=== PATIENT | male | born 1990 | race Caucasian/White ===

== ENCOUNTER 2023-08-27 11:20 | Emergency (ER) | payer OTHER, SELFPAY ==
[2023-08-27 11:24] VITALS: BP 132/100; PULSE 71; RESP 18; TEMP 36.5; O2SAT 100; BMI 25.8
--- NOTE | 2023-08-27 11:38 | ECG_ITS ---
[facility] Test Date: 2023-08-27 Pat Name: ANTIONETTE UMANA Department: Room: - Gender: Male Director Operating Room: : 1990 Requested By: [id number] Order Number: [id number] Reading MD: LAURA GARCIA Measurements Intervals [place] Rate: 64 P: 49 PA: 112 QRS: 47 QRSD: 90 T: 1 QT: 388 QTc: 398 Interpretive Statements 1100 Sinus rhythm 2210 Short PA interval 4068 Nonspecific Twave abnormality 9150 abnormal ECG No previous ECG available for comparison Electronically Signed On 08-27-2023 18:21:45 EDT by LAURA GARCIA
--- NOTE | 2023-08-27 11:39 | ED.GENADUL1 ---
HPI - General Adult General Chief complaint: Chest Pain Stated complaint: HIVES/CHEST PAIN Time Seen by Provider: 08/27/23 11:29 Source: patient Mode of arrival: walk-in Limitations: no limitations History of Present Illness HPI narrative: 32-year-old male presents for an ALLERGIC reaction. Three days ago he was put on Augmentin and two days ago he developed a rash. It's on the palms of his hands and the soles of his feet but also on his arms. The most significant area is at his right ear and just behind it. I had some tightness in his chest. No fever or vomiting or shortness of breath complaints. Related Data Previous Rx's Medication Instructions Recorded prednisone 10 mg tablet See Rx Instructions .Route 08/27/23 .COMPLEX #30 tabs Allergies Allergy/AdvReac Type Severity Reaction Status Date / Time cephalexin [From Keflex] Allergy Intermediate Verified 08/27/23 11:28 Review of Systems ROS Narrative A ten point review of systems is negative except as noted above. PFSH PFSH Social History Smoking status: Former smoker Exam Narrative Exam Narrative: Nurses note and vital signs reviewed and patient is not hypoxic. General: The patient appears well and in no apparent distress. Patient is resting comfortably on cart. Skin: Warm, dry, no pallor noted. There is erythematous raised rash present on his right ear and behhind it and to a lesser degree on his forearms and the palms of his hands and the soles of his feet. No rash inside of his mouth. Head: Normocephalic, atraumatic Eye: Normal conjunctiva, no drainage Ears, Nose, Mouth, and Throat: oral mucosa is moist. Nares patent. Cardiovascular: Regular Rate and Rhythm Respiratory: Patient is in no distress, no accessory muscle use, lungs are clear to auscultation, no wheezing, rales or rhonchi Back: non-tender GI: nontender Musculoskeletal: The patient has no evidence of calf tenderness, no pitting edema, symmetrical pulses noted bilaterally Neurological: A&O, normal speech Psychiatric: Cooperative Constitutional Vital Signs, click to edit/add: Last Vital Signs Temp 97.7 F 08/27/23 11:24 Pulse 71 08/27/23 11:24 Resp 18 08/27/23 11:24 BP 132/100 H 08/27/23 11:24 Pulse Ox 100 08/27/23 11:24 O2 Del Method Room Air 08/27/23 11:24 Course Vital Signs Vital signs: Vital Signs Temperature 97.7 F 08/27/23 11:24 Pulse Rate 71 08/27/23 11:24 Respiratory Rate 18 08/27/23 11:24 Blood Pressure 132/100 H 08/27/23 11:24 Pulse Oximetry 100 08/27/23 11:24 Oxygen Delivery Method Room Air 08/27/23 11:24 Temperature 97.7 F 08/27/23 11:24 Pulse Rate 71 08/27/23 11:24 Respiratory Rate 18 08/27/23 11:24 Blood Pressure 132/100 H 08/27/23 11:24 Pulse Oximetry 100 08/27/23 11:24 Oxygen Delivery Method Room Air 08/27/23 11:24 Medical Decision Making MDM Narrative Medical decision making narrative: my clinical impressions that he's had an ALLERGIC reaction.. The Augmentin and was given IM Solu- Medrol here and was prescribed prednisone. He is driving home. He'll take Benadryl for itching. Treatment diagnosis and follow-up were discussed with the patient. Differential Diagnosis Differential Diagnosis: ALLERGIC reaction, adverse reaction ECG Data Attestation: I personally reviewed and interpreted this ECG as follows: (EKG on my interpretation shows normal sinus rhythm with a rate of sixty-four and no acute changes.) Discharge Plan Discharge Chief Complaint: Chest Pain Clinical Impression: Allergic reaction due to antibacterial drug Patient Disposition: Home, Self-Care Time of Disposition Decision: 11:47 Condition: Good Mode of Transportation: Private Vehicle Prescriptions / Home Meds: New prednisone 10 mg tablet See Rx Instructions .ROUTE .COMPLEX Qty: 30 0RF Rx Instructions: 4 by mouth daily for three days then 3 by mouth daily for three days then 2 by mouth daily for three days then 1 by mouth daily for three days Instructions: Antibiotic Medication Allergy (ED) Additional Instructions: discontinue the Augmentin Stand Alone Forms: Portal Instructions Referrals: JAYY YOO [Primary Care Provider] - 1 week
[2023-08-27] MEDS: METHYLPREDNISOLONE SOD SUCC PF 125 MG/2 ML VIAL IM (11:57)
== END 2023-08-27 12:01 | disposition home or self-care (01) ==
LOC: ER 11:53
PROVIDERS: Emergency Provider Emergency Medicine; PCP Nurse Practitioner Family
DX: L27.0 Generalized skin eruption due to drugs and medicaments taken internally (principal); T36.0X5A Adverse effect of penicillins, initial encounter; T36.1X5A Adverse effect of cephalosporins and other beta-lactam antibiotics, initial encounter; Z87.891 Personal history of nicotine dependence
CPT/HCPCS: 93005; 96372; 99285; J2930

== ENCOUNTER 2024-01-15 04:05 | Emergency (ER) | payer OTHER, SELFPAY ==
[2024-01-15 04:11] VITALS: BP 114/90; PULSE 114; RESP 20; TEMP 37.8; O2SAT 96; BMI 25.8
--- OUTSIDE RECORDS SUMMARY | 2024-01-15 04:11 | XMS_ITS | CCD ---
Author Name Unknown Address [address] [place] [id number] Organization [facility] Care Team Providers Care Land Le[employer] Information Clerk Name Role Phone DARCY YOO Admitting Unavailable DARCY YOO Attending Unavailable FREDO, DARCY Primary Care Unavailable FREDO DARCY Consulting Unavailable FREDO, DARCY Admitting Unavailable FREDO, DARCY Attending Unavailable FREDO, DARCY Primary Care Unavailable FREDO, DARCY Consulting Unavailable Leland Erazo Unavailable JOSHUA Yoo Primary Care Provider MD Leland Erazo Attending Provider [phone] Leland Erazo Attending Unavailable Darcy Yoo Primary Care Unavailable Leland Erazo Admitting Unavailable Leland Erazo Attending Unavailable Darcy Yoo Primary Care Unavailable Leland Erazo Admitting Unavailable Husam Barba Unavailable Allergies Allergy Classification Reported Allergen(s) Allergy Type Date of Onset Reaction(s) Facility (2 sources) Cephalexin Drug Allergy Unknown [employer] Other (2 sources) Cephalexin; Translations: [cephalexin] Drug Allergy 05-18-2023 [facility] Medications Current Medications Medication Drug Class(es) Dates Sig (Normalized) Sig (Original) 24 hr buPROPion hydrochloride 150 mg extended release oral tablet (3 sources) Aminoketone Start: 05-18-2023 take 150 mg by mouth once daily Bupropion Hcl Active 150 MG PO Daily May 18, 2023 12:00am omeprazole 40 mg delayed release oral capsule (3 sources) Proton Pump Inhibitor Start: 01-28-2021 take 40 mg by mouth twice daily Omeprazole Active 40 MG PO Twice daily May 18, 2023 12:00am ondansetron 4 mg oral tablet (2 sources) Serotonin-3 Receptor Antagonist Zofran 4 MG 1 tablet Orally PRN Active polyethylene glycol 3350 [id number] mg / potassium chloride 2970 mg / sodium bicarbonate 6740 mg / sodium chloride 5860 mg / sodium sulfate 95768 mg powder for oral solution (1 source) Osmotic Laxative Start: 04-04-2023 Golytely 236 GM At 4:00 pm the day prior to colonoscopy Orally 8 ounces every 15 minutes for 1 days PLEASE CHECK ALLERGIES Mar, Active Problems Active Problems Problem Classification Problem Date Documented Da te Episodic/Chronic Abdominal hernia (2 sources) Hiatal hernia; Translations: [Diaphragmatic hernia without obstruction or gangrene] Episodic Esophageal disorders (3 sources) Gastroesophageal reflux disease; Translations: [Gastro-esophageal reflux disease without esophagitis] Chronic Gastrointestinal hemorrhage (1 source) Hemorrhage of anus and rectum Episodic Hemorrhoids (1 source) Unspecified hemorrhoids Episodic Nausea and vomiting (2 sources) Nausea and vomiting; Translations: [Nausea with vomiting, unspecified] Episodic Other disorders of stomach and duodenum (2 sources) Indigestion; Translations: [Functional dyspepsia] Episodic Other disorders of stomach and duodenum (2 sources) Functional dyspepsia; Translations: [Functional dyspepsia] Onset: 3 Episodic Other gastrointestinal disorders (2 sources) Constipation; Translations: [Constipation, unspecified] Episodic Other gastrointestinal disorders (2 sources) Heartburn; Translations: [Heartburn] Episodic Other gastrointestinal disorders (1 source) Heartburn Episodic Other gastrointestinal disorders (1 source) Abdominal distension (gaseous) Episodic Other gastrointestinal disorders (1 source) Constipation, unspecified Episodic Other non-traumatic joint disorders (1 source) Pain in right knee; Translations: [PAIN IN RIGHT KNEE] Onset: 3 Episodic Other non-traumatic joint disorders (1 source) Pain in left knee; Translations: [PAIN IN LEFT KNEE] Onset: 3 Episodic Unclassified (1 source) Hemorrhage of anus and rectum; Translations: [Hemorrhage of anus and rectum] Onset: 3 Past or Other Problems Problem Classification Problem Date Documented Da te Episodic/Chronic Other screening for suspected conditions (not mental disorders or infectious disease) (1 source) Encounter for screening for malignant neoplasm of prostate; Translations: [ENC SCREEN MALIG NEOPLASM PROSTATE] Onset: 05-11-2022 Episodic Results Test Name Value Interpretation Reference Range Facility [facility] 04-04-2023 Deamidated Gliadin Abs, IgA 12 Normal 0-19 [facility] Comment on above: Result Comment: Nega tive 0 - 19 Weak Positive 20 - 30 Moderate to Strong Positive >30 Performed By: #### C ELIAC #### [facility] , Deamidated Gliadin Abs, IgG 3 Normal 0-19 [facility] Comment on above: Result Comment: Nega tive 0 - 19 Weak Positive 20 - 30 Moderate to Strong Positive >30 Performed By: #### C ELIAC #### [facility] , Endomysial Antibody IgA Negative Normal Negative [facility] Comment on above: Performed By: #### C ELIAC #### [facility] , Immunoglobulin A, Qn, Serum 149 mg/dL Normal 90-386 [facility] Comment on above: Result Comment: Perf ormed at: - [facility] [address] [id number] Senior Advisor: Stephon Ramachandran PhD, Phone: [phone] PERFORMED BY: [place] [id number] PATHOLOGIST [employer] ANDREW PEREZ M.D. Performed By: #### C ELIAC #### [facility] , T-Transglutaminase (tTG) IgA <2 Normal 0-3 [facility] Comment on above: Result Comment: Nega tive 0 - 3 Weak Positive 4 - 10 Positive >10 Tissue Transglutaminase (tTG) has been identified as the endomysial antigen. Studies have demonstr- ated that endomysial IgA antibodies have over 99% specificity for gluten sensitive enteropathy. Performed By: #### C ELIAC #### [facility] , T-Transglutaminase (tTG) IgG <2 Normal 0-5 [facility] Comment on above: Result Comment: Nega tive 0 - 5 Weak Positive 6 - 9 Positive >9 Performed By: #### C ELIAC #### [facility] , IgA [Mass/volume] in Serum o r PlasmaOrdered By: Leland Erazo on 04-04-2023 IgA [Mass/Vol] 149 mg/dL 90-386 [facility] Comment on above: Performed at: [address] [id number] Director: Stephon Ramachandran PhD, Phone: [phone] No Panel InformationOrdered By: Leland Erazo on 04-04-2023 Endomysial IgA Antibody Negative Negative [facility] Serum gliadin peptide IgA an tibody assay (units/volume)Ordered By: Leland Erazo on 04-04-2023 Gliadin peptide IgA Qn (S) 12 units 0-19 [facility] Comment on above: Negative 0 - 19 Weak Positive 20 - 30 Moderate to Strong Positive >30 Serum gliadin peptide IgG an tibody assay (units/volume)Ordered By: Leland Erazo on 04-04-2023 Gliadin peptide IgG Qn (S) 3 units 0-19 [facility] Comment on above: Negative 0 - 19 Weak Positive 20 - 30 Moderate to Strong Positive >30 Serum tissue transglutaminas e (tTG) IgA antibody assay (units/volume)Ordered By: Leland Erazo on 04-04-2023 tTG IgA Qn (S) <2 U/mL 0-3 [facility] Comment on above: Negative 0 - 3 Weak Positive 4 - 10 Positive >10 Tissue Transglutaminase (tTG) has been identified as the endomysial antigen. Studies have demonstr- ated that endomysial IgA antibodies have over 99% specificity for gluten sensitive enteropathy. Serum tissue transglutaminas e (tTG) IgG antibody assay (units/volume)Ordered By: Leland Erazo on 04-04-2023 tTG IgG Qn (S) <2 U/mL 0-5 [facility] Comment on above: Negative 0 - 5 Weak Positive 6 - 9 Positive >9 ERNESTINA by IFAon 03-12-2023 Antinuclear Antibodies, IFA Negative Normal [facility] Comment on above: Result Comment: Nega tive <1:80 Borderline 1:80 Positive >1:80 ICAP nomenclature: AC-0 For more information about Hep-2 cell patterns use ANApatterns.org, the official website for the International Consensus on Antinuclear Antibody (ERNESTINA) Patterns (ICAP). Performed By: #### U IVANNA, CRP, LIPID, T7, CMP, TSH #### [facility] [address] [place] [address] Dr. Morris Corley ANTISTREPTOLYSIN O AB (ASO)o n 03-10-2023 Antistreptolysin O Ab 255.8 IU/mL Critically high 0.0-200.0 [facility] Comment on above: Performed By: #### A SOAB #### [facility] [address] [place] [address] Dr. Morris Corley INSULINon 03-10-2023 Insulin 12.0 uIU/mL Normal 2.6-24.9 [facility] Comment on above: Performed By: #### U IVANNA, CRP, LIPID, T7, CMP, TSH #### [facility] [address] [place] [address] Dr. Morris Corley OCC BLD IMMUNO SCREENon 02-27 OCCULT BLOOD Negative Normal NEGATIVE [facility] Comment on above: Performed By: #### U IVANNA, CRP, LIPID, T7, CMP, TSH #### [facility] [address] [place] [address] Dr. Morris Corley RHEUMATOID FACTORon 03-10-20 RA Latex Turbid. <10.0 Normal <14.0 [facility] Comment on above: Performed By: #### U IVANNA, CRP, LIPID, T7, CMP, TSH #### [facility] [address] [place] [address] Dr. Morris Corley CBC AUTO DIFFon 03-09-2023 BASO # 0.1 103/ul Normal 0.0-0.1 [facility] Comment on above: Performed By: #### C BC #### [facility] [address] [place] [address] Dr. Morris Corley Basophils/100 WBC (Bld) 0.9 % Normal 0.2-2.0 [facility] Comment on above: Performed By: #### C BC #### [facility] [address] [place] [address] Dr. Morris Corley EO # 0.2 103/ul Normal 0.0-0.7 [facility] Comment on above: Performed By: #### C BC #### [facility] [address] [place] [address] Dr. Morris Corley Eosinophils/100 WBC (Bld) 3.3 % Normal 0.9-7.0 [facility] Comment on above: Performed By: #### C BC #### [facility] [address] [place] [address] Dr. Morris Corley Erythrocyte distribution width (RBC) [Ratio] 12.2 % Normal 11.0-15.0 [facility] Comment on above: Performed By: #### C BC #### [facility] [address] [place] [address] Dr. Morris Corley Hematocrit (Bld) [Volume fraction] 45.1 % Normal 42.0-54.0 [facility] Comment on above: Performed By: #### C BC #### [facility] [address] [place] [address] Dr. Morris Corley Hemoglobin (Bld) [Mass/Vol] 15.5 g/dL Normal 14.0-18.0 [facility] Comment on above: Performed By: #### C BC #### [facility] [address] [place] [address] Dr. Morris Corley IG # 0.01 10e3/ul Normal 0.00-0.03 [facility] Comment on above: Performed By: #### C BC #### [facility] [address] [place] [address] Dr. Morris Corley IG % 0.1 % Normal 0.0-0.5 [facility] Comment on above: Performed By: #### C BC #### [facility] [address] [place] [address] Dr. Morris Corley LYMPH # 1.7 103/ul Normal 1.2-3.8 [facility] Comment on above: Performed By: #### C BC #### [facility] [address] [place] [address] Dr. Morris Corley Lymphocytes/100 WBC (Bld) 24.7 % Normal 20.5-60.0 [facility] Comment on above: Performed By: #### C BC #### [facility] [address] [place] [address] Dr. Morris Corley MANUAL DIFF REQ NO Normal [facility] Comment on above: Performed By: #### C BC #### [facility] [address] [place] [address] Dr. Morris Corley MCH (RBC) [Entitic mass] 30.4 pg Normal 25.9-34.0 [facility] Comment on above: Performed By: #### C BC #### [facility] [address] [place] [address] Dr. Morris Corley MCHC (RBC) [Mass/Vol] 34.4 g/dL Normal 29.9-35.2 [facility] Comment on above: Performed By: #### C BC #### [facility] [address] [place] [address] Dr. Morris Corley MCV (RBC) [Entitic vol] 88.4 fL Normal 80.0-94.0 [facility] Comment on above: Performed By: #### C BC #### [facility] [address] [place] [address] Dr. Morris Corley MONO # 0.5 103/ul Normal 0.3-0.8 [facility] Comment on above: Performed By: #### C BC #### [facility] [address] [place] [address] Dr. Morris Corley Monocytes/100 WBC (Bld) 7.5 % Normal 1.7-12.0 [facility] Comment on above: Performed By: #### C BC #### [facility] [address] [place] [address] Dr. Morris Corley NEUT # 4.4 103/ul Normal 1.4-6.5 [facility] Comment on above: Performed By: #### C BC #### [facility] [address] [place] [address] Dr. Morris Corley Neutrophils/100 WBC (Bld) 63.5 % Normal 43.0-75.0 [facility] Comment on above: Performed By: #### C BC #### [facility] [address] [place] [address] Dr. Morris Corley Platelet mean volume (Bld) [Entitic vol] 9.7 fL Normal 9.5-13.5 [facility] Comment on above: Performed By: #### C BC #### [facility] [address] [place] [address] Dr. Morris Corley PLT 309 103/ul Normal 150-450 [facility] Comment on above: Performed By: #### C BC #### [facility] [address] [place] [address] Dr. Morris Corley RBC 5.10 106/ul Normal 4.70-6.10 [facility] Comment on above: Performed By: #### C BC #### [facility] [address] [place] [address] Dr. Morris Corley WBC 7.0 103/ul Normal 4.0-11.0 [facility] Comment on above: Performed By: #### C BC #### [facility] [address] [place] [address] Dr. Morris Corley CRPon 03-09-2023 CRP [Mass/Vol] mg/L Normal <=1.0 [facility] Comment on above: Performed By: #### U IVANNA, CRP, LIPID, T7, CMP, TSH #### [facility] [address] [place] [address] Dr. Morris Corley FREE THYROXINE INDEX T7on FTI 3.03 Normal 1.30-4.50 [facility] Comment on above: Performed By: #### U IVANNA, CRP, LIPID, T7, CMP, TSH #### [facility] [address] [place] [address] Dr. Morris Corley T3U 34.0 % Normal 33.0-40.0 [facility] Comment on above: Performed By: #### U IVANNA, CRP, LIPID, T7, CMP, TSH #### [facility] [address] [place] [address] [address] Morris Corley T4 [Mass/Vol] 8.90 ug/dL Normal 4.50-12.10 [facility] Comment on above: Performed By: #### U IVANNA, CRP, LIPID, T7, CMP, TSH #### [facility] [address] [address] [address] Morris Corley GLYCOHEMOGLOBIN A1Con 2022 ADA RECOMMENDATION SEE BELOW Normal [facility] Comment on above: Result Comment: ADA RECOMMENDED LIMIT 4.0 - 6.0 ADA THERAPEUTIC TARGET < 7.0 ACTION SUGGESTED > 7.0 Performed By: #### U IVANNA, CRP, LIPID, T7, CMP, TSH #### [facility] [address] [address] [address] Morris Corley Glucose [Mass/Vol] 105 mg/dL Normal [facility] Comment on above: Performed By: #### U IVANNA, CRP, LIPID, T7, CMP, TSH #### [facility] [address] [place] [address] Dr. Morris Corley HbA1c (Bld) [Mass fraction] 5.3 % Normal 4.5-6.2 [facility] Comment on above: Performed By: #### U IVANNA, CRP, LIPID, T7, CMP, TSH #### [facility] [address] [place] [address] Dr. Morris Corley LIPID PROFILEon 03-09-2023 CHOL-HDL RATIO NORM SEE BELOW Normal [facility] Comment on above: Result Comment: 3.3 - 4.4 LOW RISK 4.4 - 7.1 AVERAGE RISK 7.1 - 11.0 MODERATE RISK >11.0 HIGH RISK Performed By: #### U IVANNA, CRP, LIPID, T7, CMP, TSH #### [facility] [address] [address] [address] Morris Corley Cholesterol [Mass/Vol] 192 mg/dL Normal <=200 [facility] Comment on above: Performed By: #### U IVANNA, CRP, LIPID, T7, CMP, TSH #### [facility] [address] [place] [address] Dr. Morris Corley Cholesterol in HDL [Mass/Vol] 42 mg/dL Normal 40-60 [facility] Comment on above: Performed By: #### U IVANNA, CRP, LIPID, T7, CMP, TSH #### [facility] [address] [address] [address] Morris Corley Cholesterol in LDL [Mass/Vol] 122.2 mg/dL Normal [facility] Comment on above: Performed By: #### U IVANNA, CRP, LIPID, T7, CMP, TSH #### [facility] [address] [address] [address] Morris Corley Cholesterol.total/Ch olesterol in HDL [Mass ratio] 4.6 {ratio} Normal [facility] Comment on above: Performed By: #### U IVANNA, CRP, LIPID, T7, CMP, TSH #### [facility] [address] [address] [address] Morris Corley HDL NORMAL > or = 60 mg/dl - LO W CARDIOVASCULAR RISK <40 mg/dl - HIGH CARDIOVASCULAR RISK Normal [facility] Comment on above: Performed By: #### U IVANNA, CRP, LIPID, T7, CMP, TSH #### [facility] [address] [address] [address] Morris Corley LDL CALC NORMAL SEE BELOW Normal [facility] Comment on above: Result Comment: <100 mg/dl OPTIMAL 100 - 129 mg/dl NEAR OR ABOVE OPTIMAL 130 - 159 mg/dl BORDERLINE HIGH 160 - 189 mg/dl HIGH >190 mg/dl VERY HIGH Performed By: #### U IVANNA, CRP, LIPID, T7, CMP, TSH #### [facility] [address] [address] [address] Morris Corley Triglyceride [Mass/Vol] 139 mg/dL Normal <=150 [facility] Comment on above: Performed By: #### U IVANNA, CRP, LIPID, T7, CMP, TSH #### [facility] [address] [address] [address] Morris Corley VLDL CALC 27.8 mg/dL Normal [facility] Comment on above: Performed By: #### U IVANNA, CRP, LIPID, T7, CMP, TSH #### [facility] [address] [place] [address] Dr. Morris Corley PROF 14(COMP METB)on 023 Albumin [Mass/Vol] 4.0 g/dL Normal 3.4-5.0 [facility] Comment on above: Performed By: #### U IVANNA, CRP, LIPID, T7, CMP, TSH #### [facility] [address] [place] [address] Dr. Morris Corley Albumin/Globulin [Mass ratio] 1.0 {ratio} Normal [facility] Comment on above: Performed By: #### U IVANNA, CRP, LIPID, T7, CMP, TSH #### [facility] [address] [place] [address] Dr. Morris Corley ALP [Catalytic activity/Vol] 106 U/L Normal 46-116 [facility] Comment on above: Performed By: #### U IVANNA, CRP, LIPID, T7, CMP, TSH #### [facility] [address] [place] [address] Dr. Morris Corley ALT [Catalytic activity/Vol] 20 U/L Normal 16-63 [facility] Comment on above: Performed By: #### U IVANNA, CRP, LIPID, T7, CMP, TSH #### [facility] [address] [place] [address] Dr. Morris Corley Anion gap [Moles/Vol] 10.0 mmol/L Normal [facility] Comment on above: Performed By: #### U IVANNA, CRP, LIPID, T7, CMP, TSH #### [facility] [address] [place] [address] Dr. Morris Corley AST [Catalytic activity/Vol] 17 U/L Normal 15-37 [facility] Comment on above: Performed By: #### U IVANNA, CRP, LIPID, T7, CMP, TSH #### [facility] [address] [place] [address] Dr. Morris Corley Bilirubin [Mass/Vol] 0.4 mg/dL Normal 0.2-1.0 [facility] Comment on above: Performed By: #### U IVANNA, CRP, LIPID, T7, CMP, TSH #### [facility] [address] [address] [address] Morris Corley Calcium [Mass/Vol] 9.2 mg/dL Normal 8.5-10.1 [facility] Comment on above: Performed By: #### U IVANNA, CRP, LIPID, T7, CMP, TSH #### [facility] [address] [address] [address] Morris Corley Chloride [Moles/Vol] 104 mmol/L Normal 98-107 [facility] Comment on above: Performed By: #### U IVANNA, CRP, LIPID, T7, CMP, TSH #### [facility] [address] [address] [address] Morris Corley CO2 [Moles/Vol] 33.7 mmol/L Critically high 21.0-32.0 [facility] Comment on above: Performed By: #### U IVANNA, CRP, LIPID, T7, CMP, TSH #### [facility] [address] [place] [address] Dr. Morris Corley Creatinine [Mass/Vol] 0.99 mg/dL Normal 0.70-1.30 [facility] Comment on above: Performed By: #### U IVANNA, CRP, LIPID, T7, CMP, TSH #### [facility] [address] [place] [address] Dr. Morris Corley EGFR-AF EAST TIMORESE >60 Normal >=60 [facility] Comment on above: Performed By: #### U IVANNA, CRP, LIPID, T7, CMP, TSH #### [facility] [address] [place] [address] Dr. Morris Corley EGFR-NON AF EAST [place]ORESE >60 Normal >=60 [facility] Comment on above: Performed By: #### U IVANNA, CRP, LIPID, T7, CMP, TSH #### [facility] [address] [place] [address] Dr. Morris Corley Globulin (S) [Mass/Vol] 4.0 g/dL Normal [facility] Comment on above: Performed By: #### U IVANNA, CRP, LIPID, T7, CMP, TSH #### [facility] [address] [place] [address] Dr. Morris Corley Glucose [Mass/Vol] 95 mg/dL Normal 74-106 [facility] Comment on above: Performed By: #### U IVANNA, CRP, LIPID, T7, CMP, TSH #### [facility] [address] [place] [address] Dr. Morris Corley Potassium [Moles/Vol] 3.7 mmol/L Normal 3.5-5.1 [facility] Comment on above: Performed By: #### U IVANNA, CRP, LIPID, T7, CMP, TSH #### [facility] [address] [place] [address] Dr. Morris Corley Protein [Mass/Vol] 8.0 g/dL Normal 6.4-8.2 [facility] Comment on above: Performed By: #### U IVANNA, CRP, LIPID, T7, CMP, TSH #### [facility] [address] [place] [address] Dr. Morris Corley Sodium [Moles/Vol] 144 mmol/L Normal 136-145 [facility] Comment on above: Performed By: #### U IVANNA, CRP, LIPID, T7, CMP, TSH #### [facility] [address] [place] [address] Dr. Morris Corley Urea nitrogen [Mass/Vol] 10.0 mg/dL Normal 7.0-18.0 [facility] Comment on above: Performed By: #### U IVANNA, CRP, LIPID, T7, CMP, TSH #### [facility] [address] [place] [address] Dr. Morris Corley Urea nitrogen/Creatinine [Mass ratio] 10.1 mg/mg Normal [facility] Comment on above: Performed By: #### U IVANNA, CRP, LIPID, T7, CMP, TSH #### [facility] [address] [place] [address] Dr. Morris Corley TSHon 03-09-2023 TSH 1.439 uIU/mL Normal 0.358-3.740 [facility] Comment on above: Performed By: #### U IVANNA, CRP, LIPID, T7, CMP, TSH #### [facility] [address] [place] [address] Dr. Morris Corley URIC ACID SERUMon 03-09-2023 Urate [Mass/Vol] 4.8 mg/dL Normal 3.5-7.2 [facility] Comment on above: Performed By: #### U IVANNA, CRP, LIPID, T7, CMP, TSH #### [facility] [address] [place] [address] Dr. Morris Corley INSULINon 05-10-2022 Insulin 16.4 uIU/mL Normal 2.6-24.9 [facility] Comment on above: Performed By: #### U IVANNA, CRP, LIPID, T7, CMP, TSH #### [facility] [address] [place] [address] Dr. Morris Corley CBC AUTO DIFFon 05-09-2022 BASO # 0.1 103/ul Normal 0.0-0.1 [facility] Comment on above: Performed By: #### U IVANNA, CRP, LIPID, T7, CMP, TSH #### [facility] [address] [place] [address] Dr. Morris Corley Basophils/100 WBC (Bld) 0.8 % Normal 0.2-2.0 [facility] Comment on above: Performed By: #### U IVANNA, CRP, LIPID, T7, CMP, TSH #### [facility] [address] [place] [address] Dr. Morris Corley EO # 0.2 103/ul Normal 0.0-0.7 [facility] Comment on above: Performed By: #### U IVANNA, CRP, LIPID, T7, CMP, TSH #### [facility] [address] [place] [address] Dr. Morris Corley Eosinophils/100 WBC (Bld) 2.9 % Normal 0.9-7.0 [facility] Comment on above: Performed By: #### U IVANNA, CRP, LIPID, T7, CMP, TSH #### [facility] [address] [place] [address] Dr. Morris Corley Erythrocyte distribution width (RBC) [Ratio] 12.3 % Normal 11.0-15.0 [facility] Comment on above: Performed By: #### U IVANNA, CRP, LIPID, T7, CMP, TSH #### [facility] [address] [place] [address] Dr. Morris Corley Hematocrit (Bld) [Volume fraction] 42.9 % Normal 42.0-54.0 [facility] Comment on above: Performed By: #### U IVANNA, CRP, LIPID, T7, CMP, TSH #### [facility] [address] [place] [address] Dr. Morris Corley Hemoglobin (Bld) [Mass/Vol] 15.0 g/dL Normal 14.0-18.0 [facility] Comment on above: Performed By: #### U IVANNA, CRP, LIPID, T7, CMP, TSH #### [facility] [address] [place] [address] Dr. Morris Corley IG # 0.02 10e3/ul Normal 0.00-0.03 [facility] Comment on above: Performed By: #### U IVANNA, CRP, LIPID, T7, CMP, TSH #### [facility] [address] [place] [address] Dr. Morris Corley IG % 0.3 % Normal 0.0-0.5 [facility] Comment on above: Performed By: #### U IVANNA, CRP, LIPID, T7, CMP, TSH #### [facility] [address] [place] [address] Dr. Morris Corley LYMPH # 1.6 103/ul Normal 1.2-3.8 [facility] Comment on above: Performed By: #### U IVANNA, CRP, LIPID, T7, CMP, TSH #### [facility] [address] [place] [address] Dr. Morris Corley Lymphocytes/100 WBC (Bld) 22.5 % Normal 20.5-60.0 [facility] Comment on above: Performed By: #### U IVANNA, CRP, LIPID, T7, CMP, TSH #### [facility] [address] [place] [address] Dr. Morris Corley MANUAL DIFF REQ NO Normal [facility] Comment on above: Performed By: #### U IVANNA, CRP, LIPID, T7, CMP, TSH #### [facility] [address] [place] [address] Dr. Morris Corley MCH (RBC) [Entitic mass] 30.6 pg Normal 25.9-34.0 [facility] Comment on above: Performed By: #### U IVANNA, CRP, LIPID, T7, CMP, TSH #### [facility] [address] [place] [address] Dr. Morris Corley MCHC (RBC) [Mass/Vol] 35.0 g/dL Normal 29.9-35.2 [facility] Comment on above: Performed By: #### U IVANNA, CRP, LIPID, T7, CMP, TSH #### [facility] [address] [place] [address] Dr. Morris Corley MCV (RBC) [Entitic vol] 87.6 fL Normal 80.0-94.0 [facility] Comment on above: Performed By: #### U IVANNA, CRP, LIPID, T7, CMP, TSH #### [facility] [address] [place] [address] Dr. Morris Corley MONO # 0.6 103/ul Normal 0.3-0.8 [facility] Comment on above: Performed By: #### U IVANNA, CRP, LIPID, T7, CMP, TSH #### [facility] [address] [place] [address] Dr. Morris Corley Monocytes/100 WBC (Bld) 8.0 % Normal 1.7-12.0 [facility] Comment on above: Performed By: #### U IVANNA, CRP, LIPID, T7, CMP, TSH #### [facility] [address] [place] [address] Dr. Morris Corley NEUT # 4.8 103/ul Normal 1.4-6.5 [facility] Comment on above: Performed By: #### U IVANNA, CRP, LIPID, T7, CMP, TSH #### [facility] [address] [place] [address] Dr. Morris Corley Neutrophils/100 WBC (Bld) 65.5 % Normal 43.0-75.0 [facility] Comment on above: Performed By: #### U IVANNA, CRP, LIPID, T7, CMP, TSH #### [facility] [address] [place] [address] Dr. Morris Corley Platelet mean volume (Bld) [Entitic vol] 9.6 fL Normal 9.5-13.5 [facility] Comment on above: Performed By: #### U IVANNA, CRP, LIPID, T7, CMP, TSH #### [facility] [address] [place] [address] Dr. Morris Corley PLT 295 103/ul Normal 150-450 [facility] Comment on above: Performed By: #### U IVANNA, CRP, LIPID, T7, CMP, TSH #### [facility] [address] [place] [address] Dr. Morris Corley RBC 4.90 106/ul Normal 4.70-6.10 [facility] Comment on above: Performed By: #### U IVANNA, CRP, LIPID, T7, CMP, TSH #### [facility] [address] [place] [address] Dr. Morris Corley WBC 7.3 103/ul Normal 4.0-11.0 [facility] Comment on above: Performed By: #### U IVANNA, CRP, LIPID, T7, CMP, TSH #### [facility] [address] [place] [address] Dr. Morris Corley FREE THYROXINE INDEX T7on FTI 2.87 Normal 1.30-4.50 [facility] Comment on above: Performed By: #### U IVANNA, CRP, LIPID, T7, CMP, TSH #### [facility] [address] [place] [address] Dr. Morris Corley T3U 35.0 % Normal 33.0-40.0 [facility] Comment on above: Performed By: #### U IVANNA, CRP, LIPID, T7, CMP, TSH #### [facility] [address] [place] [address] Dr. Morris Corley T4 [Mass/Vol] 8.20 ug/dL Normal 4.50-12.10 [facility] Comment on above: Performed By: #### U IVANNA, CRP, LIPID, T7, CMP, TSH #### [facility] [address] [address] [address] Morris Corley GLYCOHEMOGLOBIN A1Con 2021 ADA RECOMMENDATION SEE BELOW Normal [facility] Comment on above: Result Comment: ADA RECOMMENDED LIMIT 4.0 - 6.0 ADA THERAPEUTIC TARGET < 7.0 ACTION SUGGESTED > 7.0 Performed By: #### U IVANNA, CRP, LIPID, T7, CMP, TSH #### [facility] [address] [address] [address] Morris Corley Glucose [Mass/Vol] 105 mg/dL Normal [facility] Comment on above: Performed By: #### U IVANNA, CRP, LIPID, T7, CMP, TSH #### [facility] [address] [place] [address] Dr. Morris Corley HbA1c (Bld) [Mass fraction] 5.3 % Normal 4.5-6.2 [facility] Comment on above: Performed By: #### U IVANNA, CRP, LIPID, T7, CMP, TSH #### [facility] [address] [place] [address] Dr. Morris Corley LIPID PROFILEon 05-09-2022 CHOL-HDL RATIO NORM SEE BELOW Normal [facility] Comment on above: Result Comment: 3.3 - 4.4 LOW RISK 4.4 - 7.1 AVERAGE RISK 7.1 - 11.0 MODERATE RISK >11.0 HIGH RISK Performed By: #### U IVANNA, CRP, LIPID, T7, CMP, TSH #### [facility] [address] [address] [address] Morris Corley Cholesterol [Mass/Vol] 174 mg/dL Normal <=200 [facility] Comment on above: Performed By: #### U IVANNA, CRP, LIPID, T7, CMP, TSH #### [facility] [address] [place] [address] Dr. Morris Corley Cholesterol in HDL [Mass/Vol] 37 mg/dL Critically low 40-60 [facility] Comment on above: Performed By: #### U IVANNA, CRP, LIPID, T7, CMP, TSH #### [facility] [address] [place] [address] Dr. Morris Corley Cholesterol in LDL [Mass/Vol] 114.8 mg/dL Normal [facility] Comment on above: Performed By: #### U IVANNA, CRP, LIPID, T7, CMP, TSH #### [facility] [address] [address] [address] Morris Corley Cholesterol.total/Ch olesterol in HDL [Mass ratio] 4.7 {ratio} Normal [facility] Comment on above: Performed By: #### U IVANNA, CRP, LIPID, T7, CMP, TSH #### [facility] [address] [address] [address] Morris Corley HDL NORMAL > or = 60 mg/dl - LO W CARDIOVASCULAR RISK <40 mg/dl - HIGH CARDIOVASCULAR RISK Normal [facility] Comment on above: Performed By: #### U IVANNA, CRP, LIPID, T7, CMP, TSH #### [facility] [address] [address] [address] Morris Corley LDL CALC NORMAL SEE BELOW Normal [facility] Comment on above: Result Comment: <100 mg/dl OPTIMAL 100 - 129 mg/dl NEAR OR ABOVE OPTIMAL 130 - 159 mg/dl BORDERLINE HIGH 160 - 189 mg/dl HIGH >190 mg/dl VERY HIGH Performed By: #### U IVANNA, CRP, LIPID, T7, CMP, TSH #### [facility] [address] [address] [address] Morris Corley Triglyceride [Mass/Vol] 111 mg/dL Normal <=150 [facility] Comment on above: Performed By: #### U IVANNA, CRP, LIPID, T7, CMP, TSH #### [facility] [address] [address] [address] Morris Corley VLDL CALC 22.2 mg/dL Normal [facility] Comment on above: Performed By: #### U IVANNA, CRP, LIPID, T7, CMP, TSH #### [facility] [address] [address] [address] Morris Corley PROF 14(COMP METB)on 022 Albumin [Mass/Vol] 4.1 g/dL Normal 3.4-5.0 [facility] Comment on above: Performed By: #### U IVANNA, CRP, LIPID, T7, CMP, TSH #### [facility] [address] [address] [address] Morris Corley Albumin/Globulin [Mass ratio] 1.1 {ratio} Normal [facility] Comment on above: Performed By: #### U IVANNA, CRP, LIPID, T7, CMP, TSH #### [facility] [address] [place] [address] Dr. Morris Corley ALP [Catalytic activity/Vol] 109 U/L Normal 46-116 [facility] Comment on above: Performed By: #### U IVANNA, CRP, LIPID, T7, CMP, TSH #### [facility] [address] [place] [address] Dr. Morris Corley ALT [Catalytic activity/Vol] 19 U/L Normal 16-63 [facility] Comment on above: Performed By: #### U IVANNA, CRP, LIPID, T7, CMP, TSH #### [facility] [address] [place] [address] Dr. Morris Corley Anion gap [Moles/Vol] 10.1 mmol/L Normal [facility] Comment on above: Performed By: #### U IVANNA, CRP, LIPID, T7, CMP, TSH #### [facility] [address] [place] [address] Dr. Morris Corley AST [Catalytic activity/Vol] 15 U/L Normal 15-37 [facility] Comment on above: Performed By: #### U IVANNA, CRP, LIPID, T7, CMP, TSH #### [facility] [address] [place] [address] Dr. Morris Corley Bilirubin [Mass/Vol] 0.3 mg/dL Normal 0.2-1.0 [facility] Comment on above: Performed By: #### U IVANNA, CRP, LIPID, T7, CMP, TSH #### [facility] [address] [place] [address] Dr. Morris Corley Calcium [Mass/Vol] 9.2 mg/dL Normal 8.5-10.1 [facility] Comment on above: Performed By: #### U IVANNA, CRP, LIPID, T7, CMP, TSH #### [facility] [address] [address] [address] Morris Corley Chloride [Moles/Vol] 102 mmol/L Normal 98-107 [facility] Comment on above: Performed By: #### U IVANNA, CRP, LIPID, T7, CMP, TSH #### [facility] [address] [address] [address] Morris Corley CO2 [Moles/Vol] 32.9 mmol/L Critically high 21.0-32.0 [facility] Comment on above: Performed By: #### U IVANNA, CRP, LIPID, T7, CMP, TSH #### [facility] [address] [place] [address] Dr. Morris Corley Creatinine [Mass/Vol] 0.94 mg/dL Normal 0.70-1.30 [facility] Comment on above: Performed By: #### U IVANNA, CRP, LIPID, T7, CMP, TSH #### [facility] [address] [place] [address] Dr. Morris Corley EGFR-AF EAST TIMORESE >60 Normal >=60 [facility] Comment on above: Performed By: #### U IVANNA, CRP, LIPID, T7, CMP, TSH #### [facility] [address] [place] [address] Dr. Morris Corley EGFR-NON AF EAST [place] >60 Normal >=60 [facility] Comment on above: Performed By: #### U IVANNA, CRP, LIPID, T7, CMP, TSH #### [facility] [address] [place] [address] Dr. Morris Corley Globulin (S) [Mass/Vol] 3.7 g/dL Normal [facility] Comment on above: Performed By: #### U IVANNA, CRP, LIPID, T7, CMP, TSH #### [facility] [address] [place] [address] Dr. Morris Corley Glucose [Mass/Vol] 96 mg/dL Normal 74-106 [facility] Comment on above: Performed By: #### U IVANNA, CRP, LIPID, T7, CMP, TSH #### [facility] [address] [place] [address] Dr. Morris Corley Potassium [Moles/Vol] 4.0 mmol/L Normal 3.5-5.1 [facility] Comment on above: Performed By: #### U IVANNA, CRP, LIPID, T7, CMP, TSH #### [facility] [address] [address] [address] Morris Corley Protein [Mass/Vol] 7.8 g/dL Normal 6.4-8.2 [facility] Comment on above: Performed By: #### U IVANNA, CRP, LIPID, T7, CMP, TSH #### [facility] [address] [address] [address] Morris Corley Sodium [Moles/Vol] 141 mmol/L Normal 136-145 [facility] Comment on above: Performed By: #### U IVANNA, CRP, LIPID, T7, CMP, TSH #### [facility] [address] [place] [address] Dr. Morris Corley Urea nitrogen [Mass/Vol] 12.0 mg/dL Normal 7.0-18.0 [facility] Comment on above: Performed By: #### U IVANNA, CRP, LIPID, T7, CMP, TSH #### [facility] [address] [address] [address] Morris Corley Urea nitrogen/Creatinine [Mass ratio] 12.8 mg/mg Normal [facility] Comment on above: Performed By: #### U IVANNA, CRP, LIPID, T7, CMP, TSH #### [facility] [address] [place] [address] Dr. Morris Corley TSHon 05-09-2022 TSH 0.444 uIU/mL Normal 0.358-3.740 [facility] Comment on above: Performed By: #### U IVANNA, CRP, LIPID, T7, CMP, TSH #### [facility] [address] [place] [address] Dr. Morris Corley URIC ACID SERUMon 05-09-2022 Urate [Mass/Vol] 5.1 mg/dL Normal 3.5-7.2 [facility] Comment on above: Performed By: #### U IVANNA, CRP, LIPID, T7, CMP, TSH #### [facility] [address] [address] [address] Morris Corley VITAMIN B12on 05-09-2022 Cobalamin (Vitamin B12) [Mass/Vol] 408.0 pg/mL Normal 193.0-986.0 [facility] Comment on above: Performed By: #### U IVANNA, CRP, LIPID, T7, CMP, TSH #### [facility] [address] [place], [place] [address] Dr. Morris Corley VITAMIN D 25 OHon 05-09-2022 VIT D 25-OH 31.4 ng/mL Normal [facility] Comment on above: Performed By: #### P SASC, VITB12, VITAD #### [facility] [address] [address] [address] oMrris Corley VIT D RANGES SEE BELOW Normal [facility] Comment on above: Result Comment: <20 ng/mL Vit D deficient 20 - <30 ng/mL Vit D insufficient 30 - 100 ng/mL Vit D sufficient >100 ng/mL Potential Toxicity Performed By: #### P SASC, VITB12, VITAD #### [facility] [address] [address] [address] Morris Corley Ambulatory Clinical Summaryo n 12-09-2020 Ambulatory Clinical Summary {[id number] Normal [facility] General Surgery Office/Clini c Noteon 12-09-2020 General Surgery Office/Clinic Note Chief Complaint GERD HPI Staff Patient here for follow up from EGD and colonoscopy which was done on 11/12/19 for history of GERD and rectal bleeding. Patient complains of continued GERD. Was taking Omeprazole 20 and then was switched over to Pantoprazole 40 mg. Complains of continued GERD and dosage was changed to BID by family physician. History of Present Illness s/p EGD that revealed small hiatal hernia; placed on Protonix 4 mg daily; no improvement; recently switched to bid; still not much improvement; patient cut out coffee, but is taking a caffeine supplement; frequently eats right before going to bed due to his work schedule; only gets about 6 hours of sleep a night; no dysphagia, some regurgitation in am that is bilious. Review of Systems PHQ Score Initial Depression Screen Score: 0 ROS - Provider Constitutional: no fever, no sweats, no weight loss. Eyes: no glasses, no blurred vision, no visual loss. ENMT: no dentures, no hoarseness, no swallowing difficulties, no hearing loss, no ear infection(s), no nose bleeds. Cardiovascular: normal blood pressure, no chest pain, regular heartbeat, no heart murmur. Respiratory: no shortness of breath, no cough, no asthma, no wheezing. Gastrointestinal: no nausea, mild vomiting, no diarrhea, no constipation, no blood in stool, no change in bowel habits, no abdominal pain, no hepatitis. Genitourinary: no kidney stones, no urine infection, no dysuria. Musculoskeletal: no pain, no weakness. Skin: no changing moles, no rash, no skin lumps. Neurologic: no seizures, no epilepsy, no headache. Psychiatric: no emotional or psychiatric problem. Heme/Lymph: no bleeding problems, no anemia, no blood clots, no transfusions. Allergy/Immunologic: no swollen lymph nodes/glands, no IV drug abuse. Other: Additional ROS info: Except as noted in the above Review of Systems and in the History of Present Illness, all other systems have been reviewed and are negative or noncontributory. Physical Exam Vitals & Measurements RR: 14 BP: 138/80 HT: 170.2 cm HT: 170.18 cm WT: 80.7 kg WT: 80.73 kg BMI: 27.88 Assessment/Plan 1. Chronic GERD (K21.9: Gastro-esophageal reflux disease without esophagitis) add Carafate; recommend discontinuing all caffeine products; try not to eat at least 3 hours before going to bed; if no improvement, will likely require a pH probe study. call with problems/questions. Ordered: sucralfate, 1 gm = 1 tab(s), Oral, QID, # 120 tab(s), Refills(s) 3, Pharmacy: [id number] [facility], 170.2, cm, 12/09/20 13:34:00 EST, Height/Length Dosing, 80.7, kg, 12/09/20 13:33:00 EST, Weight Dosing Follow-up With When Contact Information NILAguila Baeza MD Only if needed [address] [place] [address]- Additional Instructions: Problem List/Past Medical History Ongoing BRBPR (bright red blood per rectum) Chronic GERD Chronic headaches Depression GERD (gastroesophageal reflux disease) Hematochezia Lower abdominal pain, unspecified Historical No qualifying data Procedure/Surgical History Colonoscopy (2020), Esophagogastroduodenoscopy (2020), Excisional biopsy, History of hernia repair. Medications caffeine 200 mg oral tablet, 200 mg= 1 tab(s), Oral, q3hr Carafate 1 gram Tab, 1 gm= 1 tab(s), Oral, QID, 3 refills Metamucil 3.4 g/5.2 g oral powder, 1.7 gm, Oral, TID, PRN Multivitamin, Therapeutic w/ Minerals, 1 tab(s), Oral, Daily Protonix 40 mg Tab-DR, 40 mg= 1 tab(s), Oral, Daily, 1 refills triamcinolone Top 0.1% Crm, 1 josé, Topical, BID Vitamin D 400 IU, 1 tab(s), Oral, Daily Wellbutrin XL 150 mg/24 hours Tab-ER, 150 mg= 1 tab(s), Oral, Daily Allergies Keflex (Rash) Social History Alcohol - Denies Alcohol Use, 09/22/2020 Substance Abuse - Denies Substance Abuse, 09/22/2020 Tobacco Former smoker, quit more than 30 days ago Tobacco Use:., 12/09/2020 Family History Alcoholism: Father. COPD: Father. Depression: Mother and Father. Hyperlipidemia: Father. Hypertension: Mother, Father and Sister. Metastatic cancer: Father. Normal [facility] Comment on above: Result Comment: Elec tronically Signed By: LOUIE MARINO, Aguila Cartwright\.br\Date and Time Signed: 12/09/20 13:48 EST [employer] 0 11-23-2020 [employer] [id number]:127 Normal [facility] Coding Summary.on 11-17-2020 Coding Summary. CODING DATE: 021 FINAL [facility] STATUS: Home (Routine DC) PAYOR: [employer] APC DESCRIPTION 5311 Level 1 Lower GI Procedures 5301 Level 1 Upper GI Procedures ADMIT DX: REASON FOR VISIT DX: K62.5 Hemorrhage of anus and rectum FINAL DX: PRINCIPAL: K62.5 Hemorrhage of anus and rectum SECONDARY: R10.30 Lower abdominal pain, unspecified K21.9 Gastro-esophageal reflux disease without esophagitis K44.9 Diaphragmatic hernia without obstruction or gangrene F32.9 Major depressive disorder, single episode, unspecified Z87.891 Personal history of nicotine dependence PYMT PROC APC STAT DESCRIPTION DOCTOR NAME DATE 28787 5311 T Colonoscopy, flexible; Aguila LORENZO MD 2020 diagnostic, including collection of specimen(s) by brushing or washing, when performed (separate procedure) 34418 5301 T Aguila LORENZO MD 2020 phagogastroduodenoscopy, flexible, transoral; diagnostic, including collection of specimen(s) by brushing or washing, when performed (separate procedure) 23607 Anesthesia for combined Mesfin Roper MD 2020 upper and lower gastrointestinal endoscopic procedures, endoscope introduced both proximal to and distal to the duodenum NOTE: The code number assigned matches the documented diagnosis and / or procedure in the patient's chart. However, the narrative phrase printed from the coding software may appear abbreviated, or result in slightly different terminology. Revised Coded By: Pam Keene Revised Date Saved: 11/17/2020 02:48 pm [facility] Main OR Intraoperative Recor don 11-16-2020 Main OR Intraoperative Record IntraOp Document Type FT Summary Primary Physician: Aguila LORENZO MD Finalized Date/Time: 11/16/20 09:09:49 Pt. Name: ANTIONETTE UMANA/Sex: 1990 Male Med Rec #: [id number] Physician: Aguila LORENZO MD Financial #: [id number] Pt. Type: O Room/Bed: / Admit/Disch: 11/12/20 07:21:37 - 11/12/20 23:59:59 Institution: Case Times FT Entry 1 Patient Times In Room 11/12/20 09:10:00 Out Room 11/12/20 09:34:00 Procedure Times Start 11/12/20 09:15:00 Stop 11/12/20 09:33:00 Anesthesia Times Start 11/12/20 09:10:00 Stop 11/12/20 09:34:00 Time at [place] 11/12/20 09:29:00 Last Modified By: Lora Perez RN 11/12/20 09:34:14 General Comments: 11/16/20 - chart logged and finalized for charges. Jose Alejandro Casarez, MSN, RN Case Attendance FT Entry 1 Entry 2 Entry 3 Case Attendee Bahman ARCE, Vivian LORENZO MD, Aguila Perez RN, Lora Rose Role Performed Anesthesiologist Surgeon - Primary Earthmoving Plant Operator - Primary Front Of House Manager Time In 11/12/20 09:10:00 11/12/20 09:10:00 11/12/20 09:10:00 Time Out 11/12/20 09:34:00 11/12/20 09:34:00 11/12/20 09:34:00 Procedure EGD AND COLONOSCOPY(.) EGD AND COLONOSCOPY(.) EGD AND COLONOSCOPY(.) Comments dr roper supervising Last Modified By: Chris ROMERO, Lora Perez RN, Lora Robin RN 11/12/20 09:34:14 11/12/20 09:34:14 11/12/20 09:34:14 Entry 4 Entry 5 Case Attendee John ROMERO, Heather Galdamez Role Performed Earthmoving Plant Operator - Primary Scrub - Primary Time In 11/12/20 09:10:00 11/12/20 09:10:00 Time Out 11/12/20 09:34:00 11/12/20 09:34:00 Procedure EGD AND COLONOSCOPY(.) EGD AND COLONOSCOPY(.) Comments orientation Last Modified By: Chris ROMERO, Lora Perez RN, Lora Rose 11/12/20 09:34:15 11/12/20 09:34:15 Perioperative Protocols FT Pre-Care Text: Implements protective measures prior to operative or invasive procedure, confirms identity before the operative or invasive procedure, verifies operative procedure, surgical site, and laterality Entry 1 Procedure(s) EGD AND COLONOSCOPY(.) Patient Identity Birthday, ID Band Verified (select at Check, Patient least 2): Participation Consents / H and P Anesthesia Consent, Operative Site N/A Verified HandP, Surgery/Procedure Marking Verified Consent Surgical Site Yes Laterality Verified n/a Verified Procedure Verified Yes Correct Patient Yes Position Verified Availability Equipment, Medication Prep Dry n/a Verified (If Applicable) PreOp Antibiotic No Time Out Vivian Gibson M, Given Participants LOUIE MARINO, Aguila Cartwright, John ROMERO, Michelle Schulz Rachel L, Lora Perez RN Time Out Complete 11/12/20 09:12:00 Outcomes Met? Yes Last Modified By: Lora Perez RN 11/12/20 09:13:48 Post-Care Text: The patient is free from signs and symptoms of injury caused by extraneous objects Allergy Information FT Pre-Care Text: Verifies allergies Entry 1 Allergies Reviewed? Yes Allergies Reviewed Self/Patient With Outcomes Met? Yes Last Modified By: Lora Perez RN 11/12/20 09:10:58 Post-Care Text: The patient received appropriate medication(s) safely administered during the perioperative period Surgical Procedures FT Entry 1 Procedure Description Procedure EGD AND COLONOSCOPY Modifiers . Surgeon Description EGD AND COLONOSCOPY Primary Procedure Yes Primary Surgeon Aguila LORENZO MD Start 11/12/20 09:15:00 Stop 11/12/20 09:33:00 Anesthesia Type General Surgical Service General Wound Class 2 - Clean-Contaminated Last Modified By: Lora Perez RN 11/12/20 09:33:15 General Case Data FT Pre-Care Text: Classifies surgical wound, implements aseptic technique, initiates traffic control Entry 1 Case Information OR OR 6 FT Case Level Level 2 Wound Class 2 - Clean-Contaminated Specialty General ASA Class 2 Preop Diagnosis RECTAL BLEEDING and GERD Postop Same As Preop No Postop Diagnosis hiatal hernia, normal Outcomes Met? Yes colon Last Modified By: Lora Perez RN 11/12/20 09:33:25 Post-Care Text: The patient is free from signs and symptoms of infection Skin Assessment (Pre Procedure) FT Pre-Care Text: Implements protective measures to prevent skin/ tissue injury due to thermal or mechanical sources Evaluates for signs and symptoms of physical injury to skin and tissue Entry 1 Skin Integrity Intact, [place], Warm, and Skin Abnormality No Dry Outcomes Met? Yes Last Modified By: Lora Perez RN 11/12/20 09:17:32 Post-Care Text: The patient is free from signs and symptoms of injury caused by extraneous objects Patient Positioning FT Pre-Care Text: Identifies physical alterations that require additional precautions for procedure-specific positioning, verifies presence of prosthetics or corrective devices, positions the patient, evaluates the patient for signs and symptoms of injury as a result of positioning Entry 1 Procedure EGD AND COLONOSCOPY(.) Body Position Lateral, right side up Feet Uncrossed? Yes Left Arm Position Resting at Side Right Arm Position Resting at Side Left Leg Position Extended Right Leg Position Extended Positioning Device Safety Strap, Pillow Under Head Large Press Points Checked Yes By Lora Perez RN Outcomes Met? Yes Last Modified By: Lora Perez RN 11/12/20 09:13:31 Post-Care Text: The patient is free from signs and symptoms of injury related to positioning Patient Care Devices FT Pre-Care Text: Implements protective measures to prevent skin/ tissue injury due to thermal or mechanical sources Entry 1 Entry 2 Equipment Type ENDOSCOPY VIDEO MONITOR CHARGE SURGERY SYSTEM[F] [F] Equipment Number Equipment Setting Outcomes Met? Yes Yes Last Modified By: Lora Perez RN, RN, Karen M 11/12/20 08:20:09 11/12/20 08:20:09 Post-Care Text: The patient is free from signs and symptoms of injury caused by extraneous objects Transport To [facility] Pre-Care Text: Transports according to individual needs. Evaluates for signs and symptoms of skin and tissue injury as a result of transfer or transport Entry 1 Via Cart By Hayley Lopez RN Safety Precautions Side Rails Up Outcomes Met? Yes Last Modified By: Lora Perez RN 11/12/20 09:14:25 Post-Care Text: The patient is free from signs and symptoms of injury related to transfer/transport Departure From [facility] Pre-Care Text: Transports according to individual needs. Evaluates for signs and symptoms of skin and tissue injury as a result of transfer or transport. Entry 1 Via Cart Safety Precautions Safety Strap, Side Rails Up PostOp Destination PACU Transported By Lora Perez RN Patient Status Stable Skin. Condition Intact, [place], Warm, and Dry Airway Maintenance Oxygen in Use? No Outcomes Met? Yes Last Modified By: Lora Perez RN 11/12/20 09:16:11 Post-Care Text: The patient is free from signs and symptoms of injury related to transfer/transport General Comments: handoff report given to pacu nurse. NICK aTylorelectrical technician Administration FT Pre-Care Text: Verifies allergies, administers prescribed medications and solutions, administers prescribed antibiotic therapy and immunizing agents as ordered, evaluates response to medications Administers prescribed medications and solutions Entry 1 Expiration Date Yes Outcomes Met? Yes Verified Last Modified By: Lora Perez RN 11/12/20 08:20:20 Post-Care Text: The patient received appropriate medication(s) safely administered during the perioperative period For [facility] please see scanned medication reconcilliation form for medications used at the field during the procedure. Case Comments Finalized By: KATHY Casarez RN, Andrea Document Signatures Signed By: Lora Perez RN 11/12/20 09:34 KATHY Casarez RN, Andrea 11/16/20 09:09 [facility] Postoperative Documentson Postoperative Documents [id number]:127 [facility] Consenton 11-13-2020 Consent [id number]:127 [facility] Discharge Instructionson Discharge Instructions [id number]#1.00CD:127 [facility] History and Physicalon 11-13 History and Physical [id number]#1.00CD:127 [facility] IntraOperative Documentson 0 11-13-2020 IntraOperative Documents [id number]:127 [facility] Coding Summary.on 2020 Coding Summary. CODING DATE: 021 [facility] STATUS: Home (Routine DC) PAYOR: Commercial Insurance ADMIT DX: REASON FOR VISIT DX: Z01.812 Encounter for preprocedural laboratory examination FINAL DX: PRINCIPAL: Z01.812 Encounter for preprocedural laboratory examination SECONDARY: Z20.828 Contact with and (suspected) exposure to other viral communicable diseases PYMT PROC APC STAT DESCRIPTION DOCTOR NAME DATE NOTE: The code number assigned matches the documented diagnosis and / or procedure in the patient's chart. However, the narrative phrase printed from the coding software may appear abbreviated, or result in slightly different terminology. Coded By: Mirza Juarez Viki Date Saved: 2020 08:12 pm [facility] Colonoscopy Procedure Report on 2020 Colonoscopy Procedure Report Date of Surgery: 2020 SURGEON: Aguila Lorenzo M.D. PREOPERATIVE DIAGNOSIS: Rectal bleeding, lower abdominal pain as well as refractory gastroesophageal reflux disease POSTOPERATIVE DIAGNOSIS: Small hiatal hernia, normal colonoscopy to cecum OPERATION: Esophagogastroduodenoscopy and colonoscopy ANESTHESIA: Monitored anesthesia care INDICATIONS AND CONSENT: The patient is a 29 year old male with history of intermittent bright red blood per rectum as well as some intermittent crampy lower abdominal pain. He also has refractory gastroesophageal reflux disease despite proton pump inhibitors. Indications, risks, benefits and alternatives of proceeding with esophagogastroduodenoscopy and colonoscopy were explained extensively to the patient including risk of bleeding, aspiration, esophagogastric, colonic perforation or anesthetic complications. All of his questions were answered. Informed consent was obtained. PROCEDURE: The patient was brought to the Operating Room and placed in the supine position. Monitored anesthesia care was provided. Bite block was placed in the patient's mouth. Scope was inserted at the oropharynx under direct visualization it was advanced into the esophagus past the cricopharyngeus down to the stomach. The stomach was insufflated with air. The pylorus was traversed down the descending portion of the duodenum. No evidence of blood, mass or ulceration. There was no scarring within the pyloric channel. The scope was pulled back in the stomach and retroflexed. There was noted to be a small hiatal hernia. No gastric mucosal abnormalities. The gastroesophageal junction was noted at approximately 40 cm. There was no distal esophagitis or Schultz's changes. The remainder of the esophagus was unremarkable. The scope was then withdrawn. The patient was then position for colonoscopy. Rectal examination was performed which revealed no masses or blood. The scope was inserted at the anal canal under direct visualization. It was advanced with the aid of abdominal compression it was advanced to the cecum where cecal markings were clearly identified. There was noted to be a good prep. Upon withdrawal of the scope mucosal surfaces were carefully examined. There was no mass, lesions or polyps. No inflammatory changes or ulcerations. No significant diverticulosis. The scope was retroflexed in the anal canal. There was noted to be some prominent rectal veins. No significant hemorrhoidal disease. The scope was then withdrawn. The patient tolerated the procedure well, was sent to Recovery Room in good condition. Follow up colonoscopy should be for screening at age 44. Kacy Olivares Dictated: 2020 #[id number] Typed: 2020 #[id number] cc: Aguila Lorenzo M.D. *Darcy Yoo CNP [facility] Consent for Treatmenton 10-30 Consent for Treatment [id number]:127 [facility] Inpatient Patient Summaryon 2020 Inpatient Patient Summary [address] [address] [facility] Clinical Discharge Instructions PERSON INFORMATION Name: ANTIONETTE UMANA [facility]#:[id number] PHYSICIANS Admitting Physician: Aguila LORENZO MD Attending Physician: Aguila LORENZO MD PCP: DARCY YOO CNP Discharge Diagnosis: Hernia, hiatal Comment: PATIENT EDUCATION INFORMATION Instructions: Colonoscopy, Care After Surgery Cruz (Custom); Upper Endoscopy, Adult, Care After; Hiatal Hernia Medication Leaflets: Follow up: With: Address: When: Aguila LORENZO [address] [place] [address], [address], [place] [id number] Business (1) Within 1 to 2 weeks Comments: for [place] office MEDICATION LIST New Medications [facility] [facility], [address] [place], [place] [id number], [phone] pantoprazole (Protonix 40 mg Tab-DR) 1 Tablets By Mouth every day. Refills: 1. Medications to Continue with No Changes Other Medications buPROPion (Wellbutrin XL 150 mg/24 hours Tab-ER) 1 Tablets By Mouth every day. cholecalciferol (Vitamin D 400 IU) 1 Tablets By Mouth every day. multivitamin with minerals (Multivitamin, Therapeutic w/ Minerals) 1 Tablets By Mouth every day. triamcinolone topical (triamcinolone Top 0.1% Crm) 1 Application Topical 2 times a day. No Longer Take the Following Medications omeprazole (omeprazole 40 mg Cap-DR) 1 Capsules By Mouth every day. Comment: [facility] Main OR PACU I Recordon 10-30 Main OR PACU I Record PACU Phase I Document Type FT Summary Primary Physician: Aguila LORENZO MD Finalized Date/Time: 11/12/20 15:01:10 Pt. Name: ANTIONETTE UMANA/Sex: 1990 Male Med Rec #: [id number] Physician: Aguila LORENZO MD Financial #: [id number] Pt. Type: O Room/Bed: / Admit/Disch: 11/12/20 07:21:37 - Institution: Case Times PACU I FT Pre-Care Text: Identifies barriers to communication and implements measures to provide psychological support Develops individualized plan of care, and ensures continuity of care Maintains patient's dignity and privacy, and maintains patient confidentiality Identifies and reports philosophical, cultural, and spiritual beliefs and values Identifies individual values and wishes concerning care Implements aseptic technique, and administers prescribed antibiotic therapy and immunizing agents as ordered Evaluates postoperative tissue perfusion Implements thermoregulation measures, and monitors body temperature Evaluates postoperative respiratory status Evaluates postoperative cardiac status Evaluates postoperative neurological status Assesses pain control, collaborated in initiating patient-controlled analgesia and implements alternative methods of pain control Verifies allergies, administers prescribed medications and solutions, evaluates response to medications Entry 1 In PACU I 11/12/20 09:37:00 Discharge from PACU 11/12/20 10:20:00 I Outcomes Met? Yes Last Modified By: Meredith Causey RN 11/12/20 14:55:26 Post-Care Text: The patient demonstrates knowledge of the expected response to the operative or invasive procedure The patient's care is consistent with the individualized perioperative plan of care The patient's right to privacy is maintained The patient's value system, lifestyle, ethnicity, and culture are considered, respected, and incorporated into the perioperative plan of care The patient participates in decisions affecting his or her perioperative plan of care The patient is free from signs and symptoms of infection The patient has wound/tissue perfusion consistent with or improved from baseline levels established preoperatively The patient is at or returning to normothermia at the conclusion of the immediate postoperative period The patient's respiratory function is consistent with or improved from baseline levels established preoperatively The patient's cardiovascular status is consistent with or improved from baseline levels established preoperatively The patient's cardiovascular status is consistent with or improved from baseline levels established preoperatively The patient demonstrates and/or reports adequate pain control throughout the perioperative period The patient received appropriate medication(s), safely administered during the perioperative period Acuity Level PACU I FT Entry 1 Start Time 11/12/20 09:37:00 Stop Time 11/12/20 10:20:00 Acuity Level Acuity Level I Last Modified By: Meredith Causey RN 11/12/20 14:55:38 Finalized By: Meredith Causey RN Document Signatures Signed By: Meredith Causey RN 11/12/20 14:55 Marium ROMERO, Meredith 11/12/20 14:55 Marium ROMERO, Meredith 11/12/20 14:55 Marium ROMERO, Meredith 11/12/20 15:01 [facility] Main OR Preoperative Recordo n 2020 Main OR Preoperative Record Holding Area Document Type FT Summary Primary Physician: Aguila LORENZO MD Finalized Date/Time: 11/12/20 07:47:55 Pt. Name: ANTIONETTE UMANA/Sex: 1990 Male Med Rec #: [id number] Physician: Aguila LORENZO MD Financial #: [id number] Pt. Type: O Room/Bed: / Admit/Disch: 11/12/20 07:21:37 - Institution: Case Times Holding FT Pre-Care Text: Verifies consent for planned procedure, identifies individual values and wishes concerning care, includes family members in perioperative teaching Secures patient's records' belongings, and valuables, maintains patient's dignity and privacy, and maintains patient confidentiality Entry 1 In Holding 11/12/20 07:46:00 Outcomes Met? Yes Last Modified By: Hiram Perez RN 11/12/20 07:46:32 Post-Care Text: The patient participates in decisions affecting his or her perioperative plan of care The patient's right to privacy is maintained Surgery Checklist FT Entry 1 Patient Birthday, ID Band Procedure History and Physical, Identification: Check, Patient Verification: Surgical Consent, With Participation Patient NPO after Midnight: Yes Personal Items: Jewelry Personal Items watch Limitations: none Comment: Complaints of Pain: No Pain Comment: denies Operative Site n/a Availability Equipment Marking: Verified: Does Patient Smoke No Patient states Yes Comment - Adult Peter- Friend postop adult Supervision supervision available Case Cancelled in No Holding Area see comments below for reason Last Modified By: Hiram Perez RN 11/12/20 07:47:50 General Comments: pt finished prep yesterday at 1530. nothing to eat or drink since 0000 MSRN Finalized By: Hiram Perez RN Document Signatures Signed By: Hiram Perez RN 11/12/20 07:47 [facility] Monitor Recordon 2020 Monitor Record [id number]:127 [facility] Outpatient Surgery Discharge Instructionon 2020 Outpatient Surgery Discharge Instruction [place] [id number] Patient Discharge Instructions PERSON INFORMATION Name: ANTIONETTE UMANA Date of : 1990 Current Date: 2020 14:54:57 PHYSICIANS Admitting Physician: Aguila LORENZO MD Discharge Diagnosis: Hernia, hiatal ANTIONETTE UMANA has been given the following list of follow-up instructions, prescriptions, and patient education materials: PATIENT FOLLOW-UP INFORMATION Diet: Regular Discharge Activity: Resume normal activities in 24 hours, Arrange for a responsible adult supervision for 24 hours Discharge Restrictions: No driving for 24 hrs, Do not make important decisions for 24 hours, Do not drink alcoholic beverages for 24 hours Call Your Doctor For: Persistent or heavy bleeding, Temperature above 101.5 degrees, Severe pain at the operative site, Persistent vomiting IF UNABLE TO CONTACT YOUR PHYSICIAN AND YOU FEEL IT IS AN EMERGENCY, GO TO THE NEAREST EMERGENCY ROOM OR CALL 911 ILYNDSAY WILLIAM K, have received the attached patient education materials/instructions and have verbalized understanding: May we do a follow up call? Yes No I was present when discharge instructions were given __ Patient Signature Date Clinican/Nurse Signature Date Follow up: With: Address: When: Aguila [place], [address], [address] [address] Business (1) Within 1 to 2 weeks Comments: for [place] office Pharmacy Information: Other: [facility] You may receive a survey from [employer] asking you to rate your care experience. Your feedback is important and will help us understand what we do well and how we can improve the quality of care we provide to you, your loved ones and our community. It?s an honor to serve you. Thank you for choosing [facility] [place] [facility] HERE ARE THE MEDICATION CHANGES THAT OCCURRED DURING YOUR HOSPITAL STAY New Medications [facility] [facility], [place] [id number], [phone] pantoprazole (Protonix 40 mg Tab-DR) 1 Tablets By Mouth every day. Refills: 1. Medications to Continue with No Changes Other Medications buPROPion (Wellbutrin XL 150 mg/24 hours Tab-ER) 1 Tablets By Mouth every day. cholecalciferol (Vitamin D 400 IU) 1 Tablets By Mouth every day. multivitamin with minerals (Multivitamin, Therapeutic w/ Minerals) 1 Tablets By Mouth every day. triamcinolone topical (triamcinolone Top 0.1% Crm) 1 Application Topical 2 times a day. No Longer Take the Following Medications omeprazole (omeprazole 40 mg Cap-DR) 1 Capsules By Mouth every day. PATIENT EDUCATION INFORMATION Instructions: Colonoscopy Care After Surgery Please read the instructions outlined below and refer to this sheet in the next few weeks. These discharge instructions provide you with general information on caring for yourself after you leave the hospital. Your doctor may also give you specific instructions. While your treatment has been planned according to the most current medical practices available, unavoidable complications occasionally occur. If you have any problems or questions after discharge, please call your doctor. ACTIVITY You may resume your regular activity, but move at a slower pace for the next 24 hours. Take frequent rest periods for the next 24 hours. Walking will help get rid of the air and reduce the bloated feeling in your abdomen (belly). No driving for 24 hours (because of the anesthesia (medicine) used during the test). You may shower. Do not sign any important legal documents or operate any machinery for 24 hours (because of the anesthesia used during the test). NUTRITION Drink plenty of fluids. You may resume your normal diet as instructed by your doctor. Begin with a light meal and progress to your normal diet. Heavy or fried foods are harder to digest and may make you feel nauseated (sick to your stomach). Avoid alcoholic beverages for 24 hours or as instructed. MEDICATIONS You may resume your normal medications unless your doctor tells you otherwise. WHAT YOU CAN EXPECT TODAY Some feelings of bloating in the abdomen. Passage of more gas than usual. Spotting of blood in your stool or on the toilet paper. IF YOU HAD POLYPS REMOVED DURING THE COLONOSCOPY: No aspirin products for 7 days or as instructed. No alcohol for 7 days or as instructed. Eat a soft diet for the next 24 hours. FOLLOW-UP Your doctor will discuss the results of your test with you. SEEK IMMEDIATE MEDICAL ATTENTION IF: There is more than a spotting of blood in your stool. There is abdominal distention (your abdomen is swollen). There is vomiting. You have a temperature over 101.5 F. There is abdominal pain or discomfort that is severe or gets worse throughout the day. Upper Endoscopy, Adult, Care After This sheet gives you information about how to care for yourself after your procedure. Your health care provider may also give you more specific instructions. If you have problems or questions, contact your health care provider. What can I expect after the procedure? After the procedure, it is common to have: ? A sore throat. ? Mild stomach pain or discomfort. ? Bloating. ? Nausea. Follow these instructions at home: ? Follow instructions from your health care provider about what to eat or drink after your procedure. ? Return to your normal activities as told by your health care provider. Ask your health care provider what activities are safe for you. ? Take [id number] and prescription medicines only as told by your health care provider. ? Do not drive for 24 hours if you were given a sedative during your procedure. ? Keep all follow-up visits as told by your health care provider. This is important. Contact a health care provider if you have: ? A sore throat that lasts longer than one day. ? Trouble swallowing. Get help right away if: ? You vomit blood or your vomit looks like coffee grounds. ? You have: ? A fever. ? Bloody, black, or tarry stools. ? A severe sore throat or you cannot swallow. ? Difficulty breathing. ? Severe pain in your chest or abdomen. Summary ? After the procedure, it is common to have a sore throat, mild stomach discomfort, bloating, and nausea. ? Do not drive for 24 hours if you were given a sedative during the procedure. ? Follow instructions from your health care provider about what to eat or drink after your procedure. ? Return to your normal activities as told by your health care provider. This information is not intended to replace advice given to you by your health care provider. Make sure you discuss any questions you have with your health care provider. Document Released: 04/16/2013 Document Revised: 04/09/2019 Document Reviewed: 03/18/2019 [employer] Patient Education ? 2020 [employer] Hiatal Hernia A hiatal hernia occurs when part of the stomach slides above the muscle that separates the abdomen from the chest (diaphragm). A person can be born with a hiatal hernia (congenital), or it may develop over time. In almost all cases of hiatal hernia, only the top part of the stomach pushes through the diaphragm. Many people have a hiatal hernia with no symptoms. The larger the hernia, the more likely it is that you will have symptoms. In some cases, a hiatal hernia allows stomach acid to flow back into the tube that carries food from your mouth to your stomach (esophagus). This may cause heartburn symptoms. Severe heartburn symptoms may mean that you have developed a condition called gastroesophageal reflux disease (GERD). What are the causes? This condition is caused by a weakness in the opening (hiatus) where the esophagus passes through the diaphragm to attach to the upper part of the stomach. A person may be born with a weakness in the hiatus, or a weakness can develop over time. What increases the risk? This condition is more likely to develop in: ? Older people. Age is a major risk factor for a hiatal hernia, especially if you are over the age of 50. ? women. ? People who are overweight. ? People who have frequent constipation. What are the signs or symptoms? Symptoms of this condition usually develop in the form of GERD symptoms. Symptoms include: ? Heartburn. ? Belching. ? Indigestion. ? Trouble swallowing. ? Coughing or wheezing. ? Sore throat. ? Hoarseness. ? Chest pain. ? Nausea and vomiting. How is this diagnosed? This condition may be diagnosed during testing for GERD. Tests that may be done include: ? X-rays of your stomach or chest. ? An upper gastrointestinal (GI) series. This is an X-ray exam of your GI tract that is taken after you swallow a chalky liquid that shows up clearly on the X-ray. ? Endoscopy. This is a procedure to look into your stomach using a thin, flexible tube that has a tiny camera and light on the end of it. How is this treated? This condition may be treated by: ? Dietary and lifestyle changes to help reduce GERD symptoms. ? Medicines. These may include: ? Imur-pws-jjqfyfk antacids. ? Medicines that make your stomach empty more quickly. ? Medicines that block the production of stomach acid (H2 blockers). ? Stronger medicines to reduce stomach acid (proton pump inhibitors). ? Surgery to repair the hernia, if other treatments are not helping. If you have no symptoms, you may not need treatment. Follow these instructions at home: Lifestyle and activity ? Do not use any products that contain nicotine or tobacco, such as cigarettes and e-cigarettes. If you need help quitting, ask your health care provider. ? Try to achieve and maintain a healthy body weight. ? Avoid putting pressure on your abdomen. Anything that puts pressure on your abdomen increases the amount of acid that may be pushed up into your esophagus. ? Avoid bending over, especially after eating. ? Raise the head of your bed by putting blocks under the legs. This keeps your head and esophagus higher than your stomach. ? Do not wear tight clothing around your chest or stomach. ? Try not to strain when having a bowel movement, when urinating, or when lifting heavy objects. Eating and drinking ? Avoid foods that can worsen GERD symptoms. These may include: ? Fatty foods, like fried foods. ? [place] fruits, like oranges or lemon. ? Other foods and drinks that contain acid, like orange juice or tomatoes. ? Spicy food. ? Chocolate. ? Eat frequent small meals instead of three large meals a day. This helps prevent your stomach from getting too full. ? Eat slowly. ? Do not lie down right after eating. ? Do not eat 1?2 hours before bed. ? Do not drink beverages with caffeine. These include cola, coffee, cocoa, and tea. ? Do not drink alcohol. General instructions ? Take opjw-ejr-huusitg and prescription medicines only as told by your health care provider. ? Keep all follow-up visits as told by your health care provider. This is important. Contact a health care provider if: ? Your symptoms are not controlled with medicines or lifestyle changes. ? You are having trouble swallowing. ? You have coughing or wheezing that will not go away. Get help right away if: ? Your pain is getting worse. ? Your pain spreads to your arms, neck, jaw, teeth, or back. ? You have shortness of breath. ? You sweat for no reason. ? You feel sick to your stomach (nauseous) or you vomit. ? You vomit blood. ? You have bright red blood in your stools. ? You have black, tarry stools. This information is not intended to replace advice given to you by your health care provider. Make sure you discuss any questions you have with your health care provider. Document Released: 01/05/2005 Document Revised: 09/28/2018 Document Reviewed: 05/21/2018 [employer] Patient Education ? 2020 [employer] Néstor Rios [facility] Patient Education - [employer]on 0 2020 Patient Education - Text Colonoscopy Care After Surgery Please read the instructions outlined below and refer to this sheet in the next few weeks. These discharge instructions provide you with general information on caring for yourself after you leave the hospital. Your doctor may also give you specific instructions. While your treatment has been planned according to the most current medical practices available, unavoidable complications occasionally occur. If you have any problems or questions after discharge, please call your doctor. ACTIVITY You may resume your regular activity, but move at a slower pace for the next 24 hours. Take frequent rest periods for the next 24 hours. Walking will help get rid of the air and reduce the bloated feeling in your abdomen (belly). No driving for 24 hours (because of the anesthesia (medicine) used during the test). You may shower. Do not sign any important legal documents or operate any machinery for 24 hours (because of the anesthesia used during the test). NUTRITION Drink plenty of fluids. You may resume your normal diet as instructed by your doctor. Begin with a light meal and progress to your normal diet. Heavy or fried foods are harder to digest and may make you feel nauseated (sick to your stomach). Avoid alcoholic beverages for 24 hours or as instructed. MEDICATIONS You may resume your normal medications unless your doctor tells you otherwise. WHAT YOU CAN EXPECT TODAY Some feelings of bloating in the abdomen. Passage of more gas than usual. Spotting of blood in your stool or on the toilet paper. IF YOU HAD POLYPS REMOVED DURING THE COLONOSCOPY: No aspirin products for 7 days or as instructed. No alcohol for 7 days or as instructed. Eat a soft diet for the next 24 hours. FOLLOW-UP Your doctor will discuss the results of your test with you. SEEK IMMEDIATE MEDICAL ATTENTION IF: There is more than a spotting of blood in your stool. There is abdominal distention (your abdomen is swollen). There is vomiting. You have a temperature over 101.5 F. There is abdominal pain or discomfort that is severe or gets worse throughout the day. Gastroenterology Upper Endoscopy, Adult, Care After This sheet gives you information about how to care for yourself after your procedure. Your health care provider may also give you more specific instructions. If you have problems or questions, contact your health care provider. What can I expect after the procedure? After the procedure, it is common to have: ? A sore throat. ? Mild stomach pain or discomfort. ? Bloating. ? Nausea. Follow these instructions at home: ? Follow instructions from your health care provider about what to eat or drink after your procedure. ? Return to your normal activities as told by your health care provider. Ask your health care provider what activities are safe for you. ? Take gnjz-kzb-wcchoxn and prescription medicines only as told by your health care provider. ? Do not drive for 24 hours if you were given a sedative during your procedure. ? Keep all follow-up visits as told by your health care provider. This is important. Contact a health care provider if you have: ? A sore throat that lasts longer than one day. ? Trouble swallowing. Get help right away if: ? You vomit blood or your vomit looks like coffee grounds. ? You have: ? A fever. ? Bloody, black, or tarry stools. ? A severe sore throat or you cannot swallow. ? Difficulty breathing. ? Severe pain in your chest or abdomen. Summary ? After the procedure, it is common to have a sore throat, mild stomach discomfort, bloating, and nausea. ? Do not drive for 24 hours if you were given a sedative during the procedure. ? Follow instructions from your health care provider about what to eat or drink after your procedure. ? Return to your normal activities as told by your health care provider. This information is not intended to replace advice given to you by your health care provider. Make sure you discuss any questions you have with your health care provider. Document Released: 04/16/2013 Document Revised: 04/09/2019 Document Reviewed: 03/18/2019 [employer] Patient Education ? 2020 [employer] Hiatal Hernia A hiatal hernia occurs when part of the stomach slides above the muscle that separates the abdomen from the chest (diaphragm). A person can be born with a hiatal hernia (congenital), or it may develop over time. In almost all cases of hiatal hernia, only the top part of the stomach pushes through the diaphragm. Many people have a hiatal hernia with no symptoms. The larger the hernia, the more likely it is that you will have symptoms. In some cases, a hiatal hernia allows stomach acid to flow back into the tube that carries food from your mouth to your stomach (esophagus). This may cause heartburn symptoms. Severe heartburn symptoms may mean that you have developed a condition called gastroesophageal reflux disease (GERD). What are the causes? This condition is caused by a weakness in the opening (hiatus) where the esophagus passes through the diaphragm to attach to the upper part of the stomach. A person may be born with a weakness in the hiatus, or a weakness can develop over time. What increases the risk? This condition is more likely to develop in: ? Older people. Age is a major risk factor for a hiatal hernia, especially if you are over the age of 50. ? women. ? People who are overweight. ? People who have frequent constipation. What are the signs or symptoms? Symptoms of this condition usually develop in the form of GERD symptoms. Symptoms include: ? Heartburn. ? Belching. ? Indigestion. ? Trouble swallowing. ? Coughing or wheezing. ? Sore throat. ? Hoarseness. ? Chest pain. ? Nausea and vomiting. How is this diagnosed? This condition may be diagnosed during testing for GERD. Tests that may be done include: ? X-rays of your stomach or chest. ? An upper gastrointestinal (GI) series. This is an X-ray exam of your GI tract that is taken after you swallow a chalky liquid that shows up clearly on the X-ray. ? Endoscopy. This is a procedure to look into your stomach using a thin, flexible tube that has a tiny camera and light on the end of it. How is this treated? This condition may be treated by: ? Dietary and lifestyle changes to help reduce GERD symptoms. ? Medicines. These may include: ? Shur-ooz-ybvusvo antacids. ? Medicines that make your stomach empty more quickly. ? Medicines that block the production of stomach acid (H2 blockers). ? Stronger medicines to reduce stomach acid (proton pump inhibitors). ? Surgery to repair the hernia, if other treatments are not helping. If you have no symptoms, you may not need treatment. Follow these instructions at home: Lifestyle and activity ? Do not use any products that contain nicotine or tobacco, such as cigarettes and e-cigarettes. If you need help quitting, ask your health care provider. ? Try to achieve and maintain a healthy body weight. ? Avoid putting pressure on your abdomen. Anything that puts pressure on your abdomen increases the amount of acid that may be pushed up into your esophagus. ? Avoid bending over, especially after eating. ? Raise the head of your bed by putting blocks under the legs. This keeps your head and esophagus higher than your stomach. ? Do not wear tight clothing around your chest or stomach. ? Try not to strain when having a bowel movement, when urinating, or when lifting heavy objects. Eating and drinking ? Avoid foods that can worsen GERD symptoms. These may include: ? Fatty foods, like fried foods. ? [place] fruits, like oranges or lemon. ? Other foods and drinks that contain acid, like orange juice or tomatoes. ? Spicy food. ? Chocolate. ? Eat frequent small meals instead of three large meals a day. This helps prevent your stomach from getting too full. ? Eat slowly. ? Do not lie down right after eating. ? Do not eat 1?2 hours before bed. ? Do not drink beverages with caffeine. These include cola, coffee, cocoa, and tea. ? Do not drink alcohol. General instructions ? Take veum-idu-ixbtfqb and prescription medicines only as told by your health care provider. ? Keep all follow-up visits as told by your health care provider. This is important. Contact a health care provider if: ? Your symptoms are not controlled with medicines or lifestyle changes. ? You are having trouble swallowing. ? You have coughing or wheezing that will not go away. Get help right away if: ? Your pain is getting worse. ? Your pain spreads to your arms, neck, jaw, teeth, or back. ? You have shortness of breath. ? You sweat for no reason. ? You feel sick to your stomach (nauseous) or you vomit. ? You vomit blood. ? You have bright red blood in your stools. ? You have black, tarry stools. This information is not intended to replace advice given to you by your health care provider. Make sure you discuss any questions you have with your health care provider. Document Released: 01/05/2005 Document Revised: 09/28/2018 Document Reviewed: 05/21/2018 [employer] Patient Education ? 2019 [employer]. [facility] Progress Note-Physicianon Progress Note-Physician Patient: ANTIONETTE UMANA Age: 30 years Sex: Male : 1990 Associated Diagnoses: None Author: Mesfin Roper MD Preoperative Information Anesthesia history: Patient History: No personal or Family history of problems with anesthesia. Re-eval prior to induction: Inital eval reviewed: No significant interval change. Review of Systems Constitutional: Negative. Cardiovascular: Cardiovascular risk stratafacation reviewed, 1 FOS without difficulty, No chest pain. Respiratory: No SOB. Hematology/Lymphatics: Negative. Gastrointestinal: as per HPI. Musculoskeletal: Negative. Neurologic: Negative. Health Status Allergies: Allergic Reactions (Selected) Severity Not Documented Keflex- Rash. Current medications: (Selected) Documented Medications Documented Multivitamin, Therapeutic w/ Minerals: 1 tab(s), Oral, Daily, Refill(s) 0 Vitamin D 400 IU: = 1 tab(s), Oral, Daily, Refills(s) 0 Wellbutrin XL 150 mg/24 hours Tab-ER: 150 mg = 1 tab(s), Oral, Daily, Refills(s) 0 omeprazole 40 mg Cap-DR: 40 mg = 1 cap(s), Oral, Daily, Refills(s) 0 triamcinolone Top 0.1% Crm: 1 josé, Topical, BID, Refill(s) 0 Problem list: All Problems BRBPR (bright red blood per rectum) / SNOMED CT 842018686 / Confirmed Hematochezia / SNOMED CT 9738109611 / Confirmed Chronic headaches / SNOMED CT 3470339844 / Confirmed GERD (gastroesophageal reflux disease) / SNOMED CT 277942768 / Confirmed Chronic GERD / SNOMED CT 330902941 / Confirmed Depression / SNOMED CT 21399751 / Confirmed Lower abdominal pain, unspecified / SNOMED CT 79013713 / Confirmed Histories Past Medical History: No active or resolved past medical history items have been selected or recorded. Procedure history: History of hernia repair ([id number]). Comments: 09/22/2020 10:29 Prabha Crowley LPN as a child Excisional biopsy ([id number]). Comments: 09/22/2020 10:30 Prabha Crowley LPN congential juan carlos on bilateral neck Social History Social & Psychosocial Habits Alcohol 09/22/2020 Risk Assessment: Denies Alcohol Use Substance Abuse 09/22/2020 Risk Assessment: Denies Substance Abuse Tobacco 09/22/2020 Tobacco Use: Former smoker, quit more Comment: quit 2018 - 09/22/2020 10:30 - Noe GOYALPrabha Deidra . Physical Examination Pain assessment: Self-reports no pain. Airway: Mallampati classification: II (soft palate, fauces, uvula visible). Distance: Adequate. Mouth: Adequate opening. Neck: Full range of motion. Respiratory: Respirations are non-labored. Cardiovascular: Regular rhythm. Neurologic: Alert, Oriented. Review / Management Results review: No qualifying data available . Plan [place] [employer] Anesthesiologists (ASA) physical status classification: Class II. Anesthetic Preoperative Plan Anesthesia: General. , Pt advised of the benefits of obstaining from tobacco products. Anesthetic plan, risks, benefits, and alternatives discussed with the patient and/or family. Patient verbalized understanding. Pt agrees with anesthetic plan and accepts all risks including but not limited to; Bleeding, infection(including covid-19), nerve injury, dental injury, eye injury, headache, low blood pressure, serious problems with the heart and lungs, allergic reactions, and .. [facility] Comment on above: Result Comment: Elec tronically Signed By: Sam MARINO, Mesfin\.br\Date and Time Signed: 11/12/20 14:55 EST Priority Order-Tyrel 2020 Priority Order-STAT Comment Jeffrey cartwright [facility] Comment on above: Result Comment: Rece ived Performed at: [facility] [address] [facility] [place] [id number] MD Chandan Thakur Performed By: #### S ARS-CoV-2, LASHANDA, [id number] ####[facility] [address] [place] [address] SARS-CoV-2, NAAon 11-06-2020 SARS CORONAVIRUS 2 RNA:PRTHR:PT:RESPIRA TORY:ORD:PROBE.AMP.T AR Not Detected Not Detected [facility] Comment on above: Result Comment: This nucleic acid amplification test was developed and its performance characteristics determined by [facility]. Nucleic acid amplification tests include PCR and TMA. This test has not been FDA cleared or approved. This test has been authorized by FDA under an Emergency Use Authorization (EUA). This test is only authorized for the duration of time the declaration that circumstances exist justifying the authorization of the emergency use of in vitro diagnostic tests for detection of SARS-CoV-2 virus and/or diagnosis of COVID-19 infection under section 564(b)(1) of the Act, 21 U.S.C. 360bbb-3(b) (1), unless the authorization is terminated or revoked sooner. When diagnostic testing is negative, the possibility of a false negative result should be considered in the context of a patient's recent exposures and the presence of clinical signs and symptoms consistent with COVID-19. An individual without symptoms of COVID-19 and who is not shedding SARS-CoV-2 virus would expect to have a negative (not detected) result in this assay. Performed at: [facility] [address] [facility] [place] [id number] MD Chandan Thakur Performed By: #### S ARS-CoV-2, LASHANDA, [id number] ####[facility] [address] [place] [address] Consent for Procedure/Surger yon 10-20-2020 Consent for Procedure/Surgery [id number]:127 [facility] Physician Orderon 10-19-2020 Physician Order [id number]:127 [facility] Pre-Certification Formon Pre-Certification Form [id number]:127 [facility] Coding Summary.on 10-05-2020 Coding Summary. CODING DATE: 020 FINAL [facility] STATUS: Home (Routine DC) PAYOR: Commercial Insurance ADMIT DX: REASON FOR VISIT DX: Z01.812 Encounter for preprocedural laboratory examination FINAL DX: PRINCIPAL: Z01.812 Encounter for preprocedural laboratory examination SECONDARY: Z20.828 Contact with and (suspected) exposure to other viral communicable diseases PYMT PROC APC STAT DESCRIPTION DOCTOR NAME DATE NOTE: The code number assigned matches the documented diagnosis and / or procedure in the patient's chart. However, the narrative phrase printed from the coding software may appear abbreviated, or result in slightly different terminology. Coded By: Viki Blue CphT Date Saved: 10/05/2020 09:58 pm [facility] Priority Order-Tyrel 2019 Priority Order-STAT Comment Jeffrey cartwright [facility] Comment on above: Result Comment: Rece ived Performed at: [facility] [address] [place], [place] [id number] MD Chandan Thakur Performed By: #### 2 [id number], SARS-CoV-2, LASHANDA ####[facility] [address] [place] [address] SARS-CoV-2, NAAon 10-04-2020 SARS CORONAVIRUS 2 RNA:PRTHR:PT:RESPIRA TORY:ORD:PROBE.AMP.T AR Not Detected Not Detected [facility] Comment on above: Result Comment: This nucleic acid amplification test was developed and its performance characteristics determined by [facility]. Nucleic acid amplification tests include PCR and TMA. This test has not been FDA cleared or approved. This test has been authorized by FDA under an Emergency Use Authorization (EUA). This test is only authorized for the duration of time the declaration that circumstances exist justifying the authorization of the emergency use of in vitro diagnostic tests for detection of SARS-CoV-2 virus and/or diagnosis of COVID-19 infection under section 564(b)(1) of the Act, 21 U.S.C. 360bbb-3(b) (1), unless the authorization is terminated or revoked sooner. When diagnostic testing is negative, the possibility of a false negative result should be considered in the context of a patient's recent exposures and the presence of clinical signs and symptoms consistent with COVID-19. An individual without symptoms of COVID-19 and who is not shedding SARS-CoV-2 virus would expect to have a negative (not detected) result in this assay. Performed at: [facility] [address] [facility] [place] [id number] MD Chandan Thakur Performed By: #### 2 [id number], SARS-CoV-2, LASHANDA ####[facility] [address] [place] [address] Consent for Procedure/Surger yon 09-23-2020 Consent for Procedure/Surgery [id number]:127 [facility] Physician Orderon 09-23-2020 Physician Order [id number]:127 [facility] Ambulatory Clinical Summaryo n 09-22-2020 Ambulatory Clinical Summary {[id number]}CD:6143 68 [facility] General Surgery Office/Clini c Noteon 09-22-2020 General Surgery Office/Clinic Note Chief Complaint referral for BRBPR HPI Staff 29 year old male presents on consultation from Peggy Yoo PASS WORKER for BRBPR. Patient has noted intermittent blood in stool for the past 4-5 years. Blood in wiping and blood in toilet. Stool is mostly soft, denies straining with BM. No known hemorrhoids. Intermittent, generalized abdominal pain. Complains of bloating, denies nausea or vomiting. No known family history of colon cancer. Never had colonoscopy in the past. History of Present Illness 29 yo male with h/o depression, headaches, referred for lower abdominal pain and BRBPR; patient reports intermittent BRBPR for several years, at times has crampy lower abdominal pain prior to bm, also intermittent ache in lower quadrants, no radiation of pain; no N/V; blood mixed in with stool sometimes, also in toilet bowel and on toilet paper, no hemorrhoid prolapse or anal pain; stools loose at times, or formed, no hard stools or straining; denies asa or NSAID use; bleeding has been worse over the last several months; also reports long h/o GERD, poorly controlled with PPIs, recently switched to omeprazole 40 mg daily; no dysphagia or odynophagia, no early satiety or wt loss; denies asa or NSAID use, no SBE prophylaxis; no fmhx of GI malignancy or IBD, does not really know much about his fmhx; no previous abdominal operations or endoscopy; abd ct scan 05/2020 wnl. Review of Systems PHQ Score Initial Depression Screen Score: 0 ROS - Provider Constitutional: no fever, no sweats, no weight loss. Eyes: no glasses, no blurred vision, no visual loss. ENMT: no dentures, no hoarseness, no swallowing difficulties, no hearing loss, no ear infection(s), no nose bleeds. Cardiovascular: normal blood pressure, no chest pain, regular heartbeat, no heart murmur. Respiratory: no shortness of breath, no cough, no asthma, no wheezing. Gastrointestinal: no nausea, no vomiting, no diarrhea, no constipation, yes blood in stool, no change in bowel habits, mild abdominal pain, no hepatitis. Genitourinary: no kidney stones, no urine infection, no dysuria. Musculoskeletal: no pain, no weakness. Skin: no changing moles, no rash, no skin lumps. Neurologic: no seizures, no epilepsy, yes headache. Psychiatric: no emotional or psychiatric problem. Heme/Lymph: no bleeding problems, no anemia, no blood clots, no transfusions. Allergy/Immunologic: no swollen lymph nodes/glands, no IV drug abuse. Other: Additional ROS info: Except as noted in the above Review of Systems and in the History of Present Illness, all other systems have been reviewed and are negative or noncontributory. Physical Exam Vitals & Measurements T: 36.6 ?C (Tympanic) HR: 73(Peripheral) RR: 16 BP: 151/93 HT: 170.18 cm HT: 170.2 cm WT: 81.5 kg WT: 81.5 kg BMI: 28.14 HEENT: normal conjunctiva, sclera clear, no scleral icterus, EOM intact, PERRLA, oral mucosa moist without lesions. Neck: trachea midline, no mass, symmetric, no thyromegaly or nodules, no adenopathy, bilateral scars, well-healed. Respiratory: lungs CTA, respirations non labored. Cardiovascular: regular rate and rhythm, no murmur, no pedal edema or varicosities. Gastrointestinal: soft, non distended, no tenderness, no masses, no palpable hernias, diastasis recti no, no hepatosplenomegaly; normal bs Lymphatic: no cervical adenopathy, no axillary adenopathy, Musculoskeletal: normal gait, digits and nails without infection, nodes, cyanosis, clubbing. Skin: no rashes, no lesions, no ulcers, no subcutaneous nodules, induration. Psychiatric/Neuro: oriented to time, place, person, judgement normal, affect appropriate for age, insight intact, no focal deficits. Tests: x-rays reviewed, review of old records completed, Discussed surgical options, risks, and possible complications with patient. Assessment/Plan 1. BRBPR (bright red blood per rectum) (K62.5: Hemorrhage of anus and rectum) plan EGD and colonoscopy under anesthesia for further evaluation, informed consent obtained. 2. Hematochezia (K92.1: Melena) see # 1 3. Lower abdominal pain, unspecified (R10.30: Lower abdominal pain, unspecified) see # 1 4. Chronic GERD (K21.9: Gastro-esophageal reflux disease without esophagitis) see # 1 Follow-up No qualifying data available Problem List/Past Medical History Ongoing BRBPR (bright red blood per rectum) Chronic GERD Chronic headaches Depression GERD (gastroesophageal reflux disease) Hematochezia Lower abdominal pain, unspecified Historical No qualifying data Procedure/Surgical History Excisional biopsy, History of hernia repair. Medications Multivitamin, Therapeutic w/ Minerals, 1 tab(s), Oral, Daily omeprazole 40 mg Cap-DR, 40 mg= 1 cap(s), Oral, Daily triamcinolone Top 0.1% Crm, 1 josé, Topical, BID Vitamin D 400 IU, 1 tab(s), Oral, Daily Wellbutrin XL 150 mg/24 hours Tab-ER, 150 mg= 1 tab(s), Oral, Daily Allergies Keflex (Rash) Social History Alcohol - Denies Alcohol Use, 09/22/2020 Substance Abuse - Denies Substance Abuse, 09/22/2020 Tobacco Former smoker, quit more than 30 days ago Tobacco Use:., 09/22/2020 Family History Alcoholism: Father. COPD: Father. Depression: Mother and Father. Hyperlipidemia: Father. Hypertension: Mother, Father and Sister. Metastatic cancer: Father. Normal [facility] Comment on above: Result Comment: Elec tronically Signed By: LOUIE MARINO, Aguila Panda\Date and Time Signed: 09/22/20 11:37 EST Physician Orderon 09-22-2020 Physician Order [id number]:127 [facility] Pre-Certification Formon Pre-Certification Form [id number]#1.00CD:127 [facility] Provider Letter FTMCon 09-22 Provider Letter [facility] (Inserted Image. Un able to display) September 22, 2020 ANTIONETTE UMANA [facility] [place] [address] ANTIONETTE UMANA 1990 To Whom It May Concern, The above named person may return to work without restrictions on 09/23/2020. Sincerely, Dr. Aguila Lorenzo MD General Surgery [facility] RAD - CT Reporton 09-22-[address] - [address] Report [id number]:127 [facility] Physician Referralon 020 Physician Referral [id number]:127 [facility] Vital Signs Date Time Vital Sign Value Performing Clinician Facility 06-30-2023 09:30-0400 Body height 172.72 cm Husam Barba Other [employer] Other 06-30-2023 09:30-0400 Body mass index (BMI) [Ratio] 26.61 kg/m2 Husam Barba Other [employer] Other 06-30-2023 09:30-0400 Body weight 79.38 kg Husam Barba Other [employer] Other 06-30-2023 09:30-0400 Diastolic blood pressure 90 mm[Hg] Husam Barba Other [employer] Other 06-30-2023 09:30-0400 Systolic blood pressure 138 mm[Hg] Husam Barba Other [facility] [email or web address] Other 05-18-2023 08:45-0400 Diastolic blood pressure 67 mm[Hg] PASS WORKER-C Darcy [place]o Work Phone: [facility] 05-18-2023 08:45-0400 Heart rate 70 /min [employer] WORK[employer]C Darcy [place]o Work Phone: [facility] 05-18-2023 08:45-0400 SaO2% (BldA) [Mass fraction] 96 % PASS WORKER-C Darcy [place]o Work Phone: [facility] 05-18-2023 08:45-0400 Systolic blood pressure 116 mm[Hg] PASS WORKER-C Darcy [place]o Work Phone: [facility] 05-18-2023 07:19-0400 Body height 172.72 cm PASS WORKER-C Darcysarah Cotamer Work Phone: [facility] 05-18-2023 07:19-0400 Body temperature 98.6 [degF] PASS WORKER-C Darcysarah Cotamer Work Phone: [facility] 05-18-2023 07:19-0400 Body weight 77.11 kg PASS WORKER-C Darcy Cotamer Work Phone: [facility] 05-18-2023 07:19-0400 Respiratory rate 20 /min PASS WORKER-C Darcysarah Cotamer Work Phone: [facility] 04-04-2023 10:45-0400 Body height 172.72 cm Leland Erazo Other [employer] Other 04-04-2023 10:45-0400 Body mass index (BMI) [Ratio] 26.45 kg/m2 Leland Erazo Other [employer] [facility] [email or web address] Other 04-04-2023 10:45-0400 Body weight 78.93 kg Leland Erazo Other [employer] Other 04-04-2023 10:45-0400 Diastolic blood pressure 93 mm[Hg] Leland Erazo Other [employer] Other 04-04-2023 10:45-0400 Systolic blood pressure 142 mm[Hg] Leland Erazo Other [employer] Other Encounters Encounter Date Encounter Type Care Provider Facility Start: 06-30-2023 End: 06-30-2023 ambulatory Husam Barba Other [facility] Other Start: 06-30-2023 Office outpatient visit 15 minutes Husam Barba [facility] Gastroenter[facility] Start: 05-18-2023 End: 05-18-2023 ambulatory Leland Erazo Facility:[facility] Start: 05-18-2023 End: 05-18-2023 Admission to same day surgery center PASS WORKER-C Darcy Yoo Work Phone: [facility] Work Phone: Start: 05-18-2023 End: 05-18-2023 ambulatory PASS WORKER-C Darcy Cotamer Work Phone: [facility] Work Phone: Start: 04-04-2023 End: 04-04-2023 Patient encounter procedure Leland Erazo [facility] Gastroenter[facility] Start: 04-04-2023 End: 04-04-2023 ambulatory PASS WORKER-C Darcy Cotamer Work Phone: [employer] [facility] [email or web address] Other Start: 03-11-2023 Encounter for genera l adult medical examination without abnormal findings DARCY YOO [facility] Start: 03-09-2023 End: 03-10-2023 ambulatory DARCY YOO Facility:[facility] Start: 03-09-2023 End: 03-10-2023 Encounter for general adult medical examination without abnormal findings DARCY YOO Facility:[facility] Start: 05-09-2022 End: 05-10-2022 ambulatory DARCY FREDO Facility:[facility] Procedures Date Procedure Procedure Detail Performing Clinician Start: 05-18-2023 Flexible fiberoptic sigmoidoscopy JOSHUA Yoo Work Phone: Start: 05-09-2022 PSA screening DARCY YOO Comment on above: Performed By: #### PSASC, VITB12, VITAD #### [facility] [address] [place] [address] Dr. Morris Corley Start: 2020 Esophagogastroduodenoscopy Plan of Treatment Date Care Activity Detail Author Start: 05-18-2023 [facility] Start: 04-04-2023 [facility] Patient Education Hemorrhoids (DC) [facility] Work Phone: Payers Date Payer Category Payer Private Health Insurance [id number] 2023 Self-pay 1990 Unknown [id number] 1989 Unknown [id number] 1959 Private Health Insurance [id number] Unknown [id number] [id number] [id number] Unknown [id number] 2.16.8 [id number] Social History Date Type Detail Facility Unknown if ever smoked [employer] Other Sex Assigned At Sex Assigned At Bir th [employer] Other Start: 1990 Sex Assigned At Male F [facility] Start: 05-18-2023 Tobacco smoking status NHIS Ex-smoker (finding) [facility] Goals Date Patient Goal Desired Activity /State Evaluation note 06-30-2023 Note Date & Type Note Facility 06-30-2023 Evaluation note Encounter Date Diagnosis Assessment Notes Jun, Hemorrhoid (ICD-10 - K64.9) Patient reports that he is doing well with OTC suppository Patient is to use wet wipes after bowel movements RTO 6 months Jun, GERD (gastroesophag eal reflux disease) (ICD-10 - K21.9) Patient is doing well with omeprazole 40 mg BID and was educated on the proper use of PPI [facility] [email or web address] Other Procedure note 05-18-2023 Note Date & Type Note Facility 05-18-2023 Procedure note [facility] Evaluation note 04-04-2023 Note Date & Type Note Facility 04-04-2023 Evaluation note Encounter Date Diagnosis Assessment Notes Mar, BRBPR (bright red blood per rectum) (ICD-10 - K62.5) Mar, Dyspepsia (ICD-10 - K30) Mar, Heartburn (ICD-10 - R12) Continue omeprazole 40 mg twice a day Mar, Bloating (ICD-10 - R14.0) Mar, Constipation (ICD-10 - K59.00) [facility] [email or web address] Other Evaluation note Note Date & Type Note Facility Evaluation note No assessment information availa [facility] Work Phone: History and physical note Note Date & Type Note Facility History and physical note Note Date/Time May 18, 2023 8:07 am [facility] [address] [place] [address] Gastroenterology H&P Signed Patient: Antionette Umana MR#: [id number] : 1990 Acct:[id number] Age/Sex: 32 / M Adm Date: 3 Loc: Room: Type: [facility] Attending Dr: Leland Erazo MD Copies to: MD Darcy Reynoso CNP~ Date of Service: 05/18/2023 HISTORY & PHYSICAL: Patient's history with special attention to the cardiovascular, pulmonary systems and the current problem was reviewed with the patient immediately prior to the procedure. Present medications and doses reviewed in the EMR. Allergies and pertinent laboratory tests were also reviewedat this time in the EMR. The physical examination, as below, was then performed. Indication, assessment and HPI: 32-year-old male presents for flexible sigmoidoscopy to evaluate rectal bleeding Family history of GI malignancy? No PHYSICAL EXAMINATION Mouth and Pharynx : Moist mucus membranes, normal dentition Cardiac: Regular rate, regular rhythm Pulmonary: Clear to auscultation bilaterally, no wheezing Neurological: Alert and oriented x3, no focal deficits noted Abdomen: Abdomen soft, non-tender REVIEW OF SYSTEMS Constitutional: Denies malaise, fevers Cardiovascular: Denies chest pain, palpitations Respiratory: Denies shortness of breath, wheezing Gastrointestinal: Per HPI Genitourinary: Denies dysuria, polyuria Musculoskeletal: Denies joint swelling, joint stiffness Neurological: Denies numbness, tingling Integumentary: Denies rashes, skin lesions Endocrine: Denies fatigue, weight loss Written informed consent obtained from the patient. Risks (including but not limited to perforation, infection, bloating, bleeding, need for emergent surgeryand loss of life), benefits and alternatives explained and questions answered. The patient verbalized understanding. Based on history patient is an appropriate candidate for the procedure. Leland Erazo MD Documented By: Leland Erazo MD 05/18/23805 Signed By: <Electronically signed by Leland Erazo MD> 05/18/23805 [facility] Work Phone: History general Narrative - Reported Note Date & Type Note Facility History general Narrative - Reported Type Medical History depression Medical History hernia Surgical History hernia Surgical History EGD/colonoscopy [employer] Other Hospital Discharge instructions Note Date & Type Note Facility Hospital Discharge instructions Additional Instructions DISCHARGE INSTRUCTIONS FOR FLEXIBLE SIGMOIDOSCOPY WHAT TO EXPECT: - You may feel full, gassy or cramping after your procedure. In some cases, this may be from a few hours to a day. Walking may help relieve the discomfort. - If you have polyp(s) removed you may note some minor bloody discharge after your first bowel movements. - You should begin to recover from anesthesia within 1 hour of the procedure, however may feel groggy for the next 24 hours. DO's AND DON'Ts: - Call your doctor right away if you have a hard abdomen, severe pain, are passing lots of bright red blood or clots. - Call your doctor if you develop any rashes, hives or difficulty breathing. - Let your doctor know if you have not had a bowel movement by 3 days after your procedure. - If you take 81 mg aspirin for your heart it is safe to resume this medication. - If you take other blood thinner medications your doctor will instruct you when these can safely be resumed. - Do NOT drive for 24 hours. - Do NOT operate machinery such as power tools, [employer] mowers, snow blowers, sewing machines, etc. for 24 hours. - Avoid alcoholic beverages and drugs for allergies, nerves, or sleep. - Do NOT stay alone. Do NOT leave your child unattended. - Do NOT make important personal or business decisions or sign any legal documents. - Eat solid foods and drink liquids in smaller amounts than usual until normal appetite returns. If you should experience an upset stomach, liquids high in sugar content (soda, Duke-Aid, non-acid juices) are recommended. - You can resume normal activities tomorrow. FOLLOW UP & RECOMMENDATIONS: -The office will schedule you a follow-up appointment in 6 to 8 weeks -Purchase an jskr-tyc-[id number] hemorrhoidal cream, such as Anusol and follow package directions -Avoid straining with bowel movements, increase your daily dietary fiber and water intake -Notify the doctor if you have any problems. -Follow up with PCP. -Office number [phone]. [facility] Work Phone: Summary Purpose Family History Relationship Condition Age at Onset Recorded Date/T george Not Specified Depression Unknown Diabetes mellitus Unknown Anomaly of heart Unknown Hypertension Unknown father Alcoholism Unknown Depression Unknown Transient ischemic attack Unknown Heart problem Unknown Malignant neoplasm of neck Unknown sister Depression Unknown Advance Directives Advance Directive Response Recorded Date/ Time Advance Directives No April 04 11:47am Advance Directive Response Recorded Date/ Time Advance Directives No May 17 11:46am Procedure Findings Note Patient: ANTIONETTE UMANA Rose RN: [birth year]11 Age: 30 years Sex: Male : 1990 Associated Diagnoses: None Author: Mesfin Roper MD Postoperative Information Post Operative Note: Post Anesthesia Care Unit. Anesthetic utilized: General. Health Status Allergies: Allergic Reactions (All) Severity Not Documented Keflex- Rash. Problem list: All Problems BRBPR (bright red blood per rectum) / SNOMED CT 111425911 / Confirmed Hematochezia / SNOMED CT 6251558084 / Confirmed Chronic headaches / SNOMED CT 6036673948 / Confirmed GERD (gastroesophageal reflux disease) / SNOMED CT 218012893 / Confirmed Chronic GERD / SNOMED CT 490200407 / Confirmed Depression / SNOMED CT 65995807 / Confirmed Lower abdominal pain, unspecified / SNOMED CT 11612178 / Confirmed Physical Examination Intake and Output Adequate hydration Pain assessment: Self-reports no pain. General: Alert and oriented, No acute distress. Eye: Vision unchanged. HENT: Oral mucosa is moist, dentition unchanged. Respiratory: R (more content not included)... Chief Complaint and Reason for Visit Chief Complaint K30. 12. R14.0 Chief Complaint K30. 12. R14.0 Rectal Bleeding, Contipation Additional Source Comments (unrecognized sect ion and content) No Status Records FoundNo Status Records FoundNo Status Records Found INFORMATION SOURCE (unrecogn ized section and content) DATE CREATED AUTHOR 01/06/2021 [facility] DATE CREATED AUTHOR AUTHOR'S ORGANIZ ATION 03/13/2023 [facility] DATE CREATED AUTHOR AUTHOR'S ORGANIZ ATION 05/25/2023 [facility] REASON FOR VISIT (unrecogniz ed section and content) BRBPRPatient is here for fol low up from [employer] Care Teams (unrecognized sec tion and content) Team Status: Active Member Role Status Dates JOSHUA Pearson Primary Care Provider Active Team Status: Inactive Member Role Status Dates JOSHUA Pearson Primary Care Provider Active Leland Erazo MD Attending Provider Active Team Status: Inactive Member Role Status Dates Leland Erazo MD Attending Provider Active JOSHUA Pearson Primary Care Provider Active Goals (unrecognized section and content) Goals may be documented in a n alternate section FOR RECORDS PERTAINING TO PATIENTS WHO ARE OR HAVE BEEN ENROLLED IN A CHEMICAL DEPENDENCY/SUBSTANCEABUSE PROGRAM, SOME INFORMATION MAY BE OMITTED. This clinical summary was aggregated from multiple sources. Caution should be exercised in using it in the provision of clinical care. This summary normalizes information from multiple sources, and as a consequence, information in this document may materially change the coding, format and clinical context of patient data. In addition, data may be omitted in some cases. CLINICAL DECISIONS SHOULD BE BASED ON THE PRIMARY CLINICAL RECORDS. [facility] [employer] [facility] provides no warranty or guarantee of the accuracy or completeness of information in this document.
--- NOTE | 2024-01-15 04:24 | ED_ITS ---
HPI - General Adult General Chief complaint: Fever Stated complaint: FLU TYPE ISSUES Time Seen by Provider: 01/15/24 04:19 Source: patient Mode of arrival: walk-in Limitations: no limitations History of Present Illness HPI narrative: Patient developed cough, achiness, fever, fatigue and chills last night around 8pm and it continued into this morning. No vomiting but he had some diarrhea. He is uncertain about ill contacts. He took some aspirin around 8pm. Related Data Previous Rx's Medication Instructions Recorded prednisone 10 mg tablet See Rx Instructions .Route 08/27/23 .COMPLEX #30 tabs azithromycin 250 mg tablet See Rx Instructions PO .COMPLEX #6 01/15/24 tabs Allergies Allergy/AdvReac Type Severity Reaction Status Date / Time cephalexin [From Keflex] Allergy Intermediate Verified 01/15/24 04:16 amoxicillin Allergy Hives Verified 01/15/24 04:16 [facility] Social History Smoking status: Former smoker Exam Narrative Exam Narrative: Nurses notes and vital signs reviewed and patient is not hypoxic. Febrile T100.1F General: Well-appearing and in no apparent distress. Skin: Warm, dry, no pallor noted. No rash. Head: Normocephalic, atraumatic. Neck: Supple, non-tender. No cervical lymphadenopathy Eye: Pupils are equal, round and EOMI. No scleral icterus. Ears, Nose, Mouth, and Throat: TM are clear, mild posterior oropharynx erythema without exudate. no nasal mucosal hypertrophy Oral mucosa is moist, uvula is mid-line Cardiovascular: Tachycardia. Respiratory: No accessory muscle use or respiratory distress. Lungs are clear to auscultation, no wheezing, rales or rhonchi Musculoskeletal: normal ROM GI: Abdomen is soft, non-distended. Normal bowel sounds. No tenderness to palpation. No rebound, guarding, or rigidity noted. Neurological: A&O x4. No cranial nerve dysfunction observed. No truncal ataxia. Moves all extremities. Sensation intact. Psychiatric: Cooperative and interactive. Normal mood and affect. Constitutional Vital Signs, click to edit/add: Last Vital Signs Temp 100.1 F 01/15/24 04:11 Pulse 114 H 01/15/24 04:11 Resp 20 01/15/24 04:11 BP 114/90 01/15/24 04:11 Pulse Ox 96 01/15/24 04:11 O2 Del Method Room Air 01/15/24 04:11 Course Vital Signs Vital signs: Vital Signs Temperature 100.1 F 01/15/24 04:11 Pulse Rate 114 H 01/15/24 04:11 Respiratory Rate 20 01/15/24 04:11 Blood Pressure 114/90 01/15/24 04:11 Pulse Oximetry 96 01/15/24 04:11 Oxygen Delivery Method Room Air 01/15/24 04:11 Temperature 100.1 F 01/15/24 04:11 Pulse Rate 114 H 01/15/24 04:11 Respiratory Rate 20 01/15/24 04:11 Blood Pressure 114/90 01/15/24 04:11 Pulse Oximetry 96 01/15/24 04:11 Oxygen Delivery Method Room Air 01/15/24 04:11 Medical Decision Making MDM Narrative Medical decision making narrative: Patient presents with symptoms suggesting viral infection such as influenza or COVID. The patient was ordered to receive Tylenol and Motrin but he has difficulty swallowing pills therefore I asked the emergency department staff to grind that up if possible and put it in applesauce or something else that he may be able to eat such as putting. Swabs for COVID and influenza obtained and were both negative. Patient informed of results, diagnosis and plan for treatment. Discharged home with prescription for zpak. PCP follow up recommended. Lab Data Lab results reviewed: Yes I reviewed the patient's lab results Labs: Lab Results 01/15/24 Range/Units 04:32 Influenza Type A Ag Negative Influenza Type B Ag Negative SARS-CoV-2 Ag (CV2AG) Negative (NEGATIVE) Discharge Plan Discharge Stand Alone Forms: Portal Instructions Chief Complaint: Fever Clinical Impression: URI (upper respiratory infection), Acute febrile illness Patient Disposition: Home, Self-Care Time of Disposition Decision: 04:56 Prescriptions / Home Meds: New azithromycin 250 mg tablet See Rx Instructions .ROUTE .COMPLEX Qty: 6 0RF Rx Instructions: For 250 mg dose pack: take 500 mg today (day 1), then 250 mg for 4 days (days 2-5) No Action prednisone 10 mg tablet See Rx Instructions .ROUTE .COMPLEX Qty: 30 0RF Rx Instructions: 4 by mouth daily for three days then 3 by mouth daily for three days then 2 by mouth daily for three days then 1 by mouth daily for three days Instructions: Fever in Adults (ED), Upper Respiratory Infection (ED) Referrals: JAYY YOO [Primary Care Provider] - 1 week
[2024-01-15] MEDS: ACETAMINOPHEN 500 MG TABLET 1000 MG PO (04:41)
[2024-01-15] MEDS: IBUPROFEN 400 MG TABLET 800 MG PO (04:42)
[2024-01-15 04:52] LABS: Influenza Virus A Antigen Negative; Influenza Virus B Antigen Negative; Internal Control Within Normal Limits; SARS-CoV-2 Ag NEGATIVE (NEGATIVE)
== END 2024-01-15 05:10 | disposition home or self-care (01) ==
PROVIDERS: Emergency Provider Emergency Medicine; PCP Nurse Practitioner Family
DX: J06.9 Acute upper respiratory infection, unspecified (principal); R50.9 Fever, unspecified; Z20.822 Contact with and (suspected) exposure to COVID-19; Z87.891 Personal history of nicotine dependence
CPT/HCPCS: 87804; 87811; 99283